=== PATIENT | female | born 1940 | race Caucasian/White ===

== ENCOUNTER 2017-11-14 14:23 | Emergency (ER) | payer MEDICARE, OTHER, SELFPAY ==
--- NOTE | 2017-11-14 14:31 | ED.EXTPRO ---
HPI - Extremity Problem <Lisa Aguillon PA-C - Last Filed: 11/14/17 22:36> General Chief complaint: Extremity Problem,Nontraumatic Stated complaint: SWOLLEN CALF,LEG ACHES Time Seen by Provider: 11/14/17 14:33 Source: patient Mode of arrival: ambulatory Limitations: no limitations History of Present Illness HPI Narrative: This 77-year-old female was sent in by her PCP today due to noticing some leg swelling. She states she has ongoing achiness in that leg that she has seemed related to her chronic left hip and leg pain and arthritis/tendinitis, for which she is doing PT. She states that today is the 1st day that she noticed any swelling but this may have been going on for awhile. She states that she has maybe a little bit of mild calf pain. She notes a little bit of swelling in her legs sometimes and wears compression stockings as needed. She denies any chest pain, wheeze, dyspnea, nausea, abdominal pain or other new symptoms today and has been feeling well. She states that there is no history of blood clots or other family members that she knows of Related Data Previous Rx's Medication Instructions Recorded hydrochlorothiazide 12.5 mg capsule 12.5 mg PO DAILY #90 cap 12/12/17 levothyroxine 100 mcg tablet 100 mcg PO QAM #90 tab 12/12/17 lisinopril 20 mg tablet 20 mg PO DAILY #90 tab 12/12/17 Allergies Allergy/AdvReac Type Severity Reaction Status Date / Time clarithromycin Allergy Unknown Verified 10/21/17 15:06 [CLARITHROMYCIN] Penicillins [PENICILLINS] Allergy Unknown Verified 10/21/17 15:06 rofecoxib [ROFECOXIB] Allergy Unknown Unverified 09/21/17 11:58 Review of Systems <Lisa Aguillon PA-C - Last Filed: 11/14/17 22:36> Review of Systems All systems reviewed & are unremarkable except as noted in HPI and below Exam <Lisa Aguillon PA-C - Last Filed: 11/14/17 22:36> Narrative Exam Narrative: GENERAL APPEARANCE: Patient sitting comfortably, in no distress. NECK/THYROID: Neck supple, no JVD. LUNGS: Clear to auscultation bilaterally. HEART: Regular rate and rhythm without murmur, normal S1, S2, no S3 or S4. EXTREMITIES: No cyanosis, numerous varicosities, increased on the left. Minimal left calf tenderness, none on the right. Right calf measures 39.5 cm, left calf 40. Both angles measure 21.5 cm NEUROLOGIC: Alert and oriented, normal speech, gait and coordination. Initial Vital Signs Initial Vital Signs: Vital Signs Temperature 98.2 F 11/14/17 14:34 Pulse Rate 73 11/14/17 14:34 Respiratory Rate 20 11/14/17 14:34 Blood Pressure 165/92 H 11/14/17 14:34 Pulse Oximetry 96 11/14/17 14:34 <Karri Malone MD - Last Filed: 12/15/17 06:51> Initial Vital Signs Initial Vital Signs: Vital Signs Temperature 98.2 F 11/14/17 14:34 Pulse Rate 73 11/14/17 14:34 Respiratory Rate 20 11/14/17 14:34 Blood Pressure 165/92 H 11/14/17 14:34 Pulse Oximetry 96 11/14/17 14:34 Course <Lisa Aguillon PA-C - Last Filed: 11/14/17 22:36> Orders Ordered: ED Orders 11/14/17 14:46 US periph venous low extrem lt Stat Vital Signs - 8 hr 11/14/17 14:43 Pulse Rate [Left Dorsalis Pedis] 72 <Karri Malone MD - Last Filed: 12/15/17 06:51> Orders Ordered: ED Orders 11/14/17 14:46 US periph venous low extrem lt Stat Vital Signs - 8 hr 11/14/17 14:43 Pulse Rate [Left Dorsalis Pedis] 72 MDM - Extremity (Nontraumatic) <Lisa Aguillon PA-C - Last Filed: 11/14/17 22:36> Imaging Data Venous US: Radiologist's impression: View Report History [address] [address] Ultrasound Report Signed Patient: Barbra Vargas MR#: [id number] : 1940 Acct:[id number] Age/Sex: 77 / F Date of Service: 11/14/17 Loc: ED Accession Number: [id number] Procedure: US periph venous low extrem lt Ordering Provider: Lisa Aguillon P.A-C PROCEDURE: US PERIPH VENOUS LOW EXTREM LT INDICATIONS: L. LE swelling, pain TECHNIQUE: Real-time imaging, as well as color and pulse Doppler interrogation, were performed of the lower extremity deep veins from the inguinal ligament to the popliteal fossa. COMPARISON: None. FINDINGS: The deep veins are normally compressible, and free of intraluminal thrombus. Color and pulse Doppler demonstrate normal phasic intraluminal flow. There is normal augmentation response to distal compression maneuver. IMPRESSION: No evidence of left lower extremity deep vein thrombosis. Dictated by: Alhaji Quintero M.D. on 11/14/2017 at 15:15 Approved by: Alhaji Quintero M.D. on 11/14/2017 at 15:16 Discharge Plan Departure Patient Disposition: Home, Self-Care Clinical Impression: Edema of lower extremity Discharge Date/Time: 11/14/17 16:29 Interventions: ED Discharge Assessment Last Done: 11/14/17 16:28 Instructions: DI for Edema Due to Venous Stasis Activity Restrictions/Additional Instructions: I suspect that your calf swelling is due to having more varicose veins on that side, likely the blood is pulling a little bit more on that side. You do not have any evidence of a blood clot in your veins on your preliminary scan today. I will let you know if the radiologist finds any differences. Please follow-up with your PCP if you have continued pain and swelling. Elevate your legs above your heart as much as possible and do not eat excess salt which could exacerbate the swelling Prescriptions: No Action levothyroxine [Synthroid] 100 mcg tablet 100 mcg PO QAM Qty: 90 RF: 3 lisinopril 20 mg tablet 20 mg PO DAILY Qty: 90 RF: 3 hydrochlorothiazide [Microzide] 12.5 mg capsule 12.5 mg PO DAILY Qty: 90 RF: 3 Referrals: Robe Larson MD [Primary Care Provider] - <Karri Malone MD - Last Filed: 12/15/17 06:51> Cosign ED Attending Cosignature Attestation: The PA/DATA MINING ANALYST functioned independently for the care of this pt, I was available, but not asked to participate in care. I am unable to determine appropriateness of management without personally examining the pt.
[2017-11-14 14:34] VITALS: BP 165/92; PULSE 73; RESP 20; TEMP 36.8; O2SAT 96; BMI 30.1
[2017-11-14 14:43] VITALS: PULSE 72
--- NOTE | 2017-11-14 14:46 | DI.US.S_ITS ---
PROCEDURE: US PERIPH VENOUS LOW EXTREM LT INDICATIONS: L. LE swelling, pain TECHNIQUE: Real-time imaging, as well as color and pulse Doppler interrogation, were performed of the lower extremity deep veins from the inguinal ligament to the popliteal fossa. COMPARISON: None. FINDINGS: The deep veins are normally compressible, and free of intraluminal thrombus. Color and pulse Doppler demonstrate normal phasic intraluminal flow. There is normal augmentation response to distal compression maneuver. IMPRESSION: No evidence of left lower extremity deep vein thrombosis. Dictated by: Alhaji Quintero M.D. on 11/14/2017 at 15:15 Approved by: lAhaji Quintero M.D. on 11/14/2017 at 15:16
== END 2017-11-14 16:29 | disposition home or self-care (01) ==
PROVIDERS: Emergency Provider Internal Medicine; Family Provider Family Medicine; PCP Family Medicine
DX: R60.0 Localized edema (principal)
CPT/HCPCS: 93971; 99282; 99284

== ENCOUNTER → 2018-02-06 07:52 | Outpatient (CLI) | payer MEDICARE, OTHER, SELFPAY ==
[2018-02-06 09:19] LABS: Add Manual Diff / Slide Review NO; Basophils Percent Auto 1.1 % (0-2); Hematocrit 45.5 % (36-46); Hemoglobin 15.4 g/dL (12.0-16.0); Mean Corpuscular HGB Conc 33.9 % (30-36); Mean Corpuscular Hemoglobin 29.7 PG (26-34); Mean Corpuscular Volume 87.7 fL (80-100); Monocytes Percent Auto 6.1 % (3-14); Neutrophils Absolute Auto 4400 /uL (3000-5900); Neutrophils Percent Auto 69.8 % (50-75); Platelet Count 271 X10^3/uL (150-400); Red Blood Cell Count 5.18 X10^6/uL (4.0-5.2); Red Cell Distribution Width 14.3 % (11.6-14.8); White Blood Cell Count 6.3 X10^3/uL (4.5-11.0)
[2018-02-06 09:46] LABS: Alanine Aminotransferase 33 IU/L (9-52); Albumin 4.6 g/dL (3.5-5.0); Albumin Globulin Ratio 1.4 (1.0-2.8); Alkaline Phosphatase 80 U/L (38-126); Aspartate Aminotransferase 40 IU/L (14-36); BUN Creatinine Ratio 31.7 (6-22); Bilirubin Total 0.6 mg/dL (0.2-1.3); Blood Urea Nitrogen 19 mg/dL (7-17); Calcium 9.8 mg/dL (8.4-10.2); Carbon Dioxide 32 mmol/L (22-32); Chloride 102 mmol/L (98-107); Cholesterol 193 mg/dL (140-199); Estimated Glomerular Filt Rate > 60.0 mL/min (>60); Globulin 3.2 g/dL (1.7-4.1); Glucose 99 mg/dL (80-110); HDL Cholesterol 60 mg/dL (40-60); HEMOLYSIS 21 (0-50); LDL Cholesterol Calculated 111 mg/dL (<100); Potassium 4.6 mmol/L (3.4-5.1); Sodium 147 mmol/L (137-145); Total Protein 7.8 g/dL (6.3-8.2); Triglycerides 111 mg/dL (35-150)
[2018-02-06 10:29] LABS: TSH w/ Reflex to FT4 0.09 uIU/mL (0.47-4.68)
[2018-02-06 10:59] LABS: Free T4, Direct Thyroxine 2.02 ng/dL (0.78-2.19)
== END ==
PROVIDERS: Family Provider Family Medicine; PCP Family Medicine; Visit Provider Family Medicine
DX: I10 Essential (primary) hypertension (principal); E03.9 Hypothyroidism, unspecified
CPT/HCPCS: 36415; 80053; 80061; 84439; 84443; 85025

== ENCOUNTER → 2018-05-03 13:44 | Outpatient (CLI) | payer MEDICARE, OTHER, SELFPAY ==
[2018-05-03 15:33] LABS: TSH w/ Reflex to FT4 0.68 uIU/mL (0.47-4.68)
== END ==
PROVIDERS: PCP Family Medicine; Visit Provider Family Medicine
DX: E03.9 Hypothyroidism, unspecified (principal)
CPT/HCPCS: 36415; 84443

== ENCOUNTER → 2019-02-09 08:14 | Outpatient (CLI) | payer MEDICARE, OTHER, SELFPAY ==
--- NOTE | 2019-02-09 | DI.RAD.S_ITS ---
PROCEDURE: XR LUMBAR SPINE 2-3V INDICATIONS: SCOLIOSIS TECHNIQUE: 3 views of the lumbar spine were acquired. COMPARISON: [facility], , L-SPINE 2-3 VIEWS, 10/07/2017, 9:07. FINDINGS: Bones: 5 [id number] vertebrae are present. There is mildly dextroscoliotic bony alignment. No vertebral body compression fractures. No suspicious bony lesions. 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 Soft tissues: Overlying bowel gas pattern is normal. No suspicious soft tissue calcifications. Prior cholecystectomy clips. IMPRESSION: No compression fracture found. Stable appearing dextroscoliosis centered at the L3 level of the LS-spine. Spinal and foraminal stenosis would be suspected at L4-5 and L5-S1. Dictated by: Dimitri Warner M.D. on 02/09/2019 at 10:28 Approved by: Dimitri Warner M.D. on 02/09/2019 at 10:34
[2019-02-09 09:50] LABS: Add Manual Diff / Slide Review NO; Basophils Absolute Auto 0 /uL (0-100); Basophils Percent Auto 0.7 % (0-2); Eosinophils Absolute Auto 100 /uL (0-450); Eosinophils Percent Auto 1.7 % (2-4); Hematocrit 44.9 % (36-46); Lymphocytes Absolute Auto 1700 /uL (1100-4500); Lymphocytes Percent Auto 27.6 % (25-40); Mean Corpuscular HGB Conc 33.4 % (30-36); Mean Corpuscular Hemoglobin 29.7 PG (26-34); Mean Corpuscular Volume 89.1 fL (80-100); Monocytes Absolute Auto 400 /uL (0-900); Monocytes Percent Auto 6.6 % (3-14); Neutrophils Absolute Auto 3900 /uL (1500-7000); Neutrophils Percent Auto 63.4 % (50-75); Platelet Count 298 X10^3/uL (150-400); Red Blood Cell Count 5.04 X10^6/uL (4.0-5.2); Red Cell Distribution Width 14.1 % (11.6-14.8); White Blood Cell Count 6.1 X10^3/uL (4.5-11.0)
[2019-02-09 09:59] LABS: Alanine Aminotransferase 25 IU/L (9-52); Albumin 4.5 g/dL (3.5-5.0); Albumin Globulin Ratio 1.4 (1.0-2.8); Alkaline Phosphatase 91 U/L (38-126); Aspartate Aminotransferase 25 IU/L (14-36); BUN Creatinine Ratio 28.3 (6-22); Bilirubin Total 0.5 mg/dL (0.2-1.3); Blood Urea Nitrogen 17 mg/dL (7-17); Calcium 10.1 mg/dL (8.4-10.2); Carbon Dioxide 31 mmol/L (22-32); Chloride 102 mmol/L (98-107); Cholesterol 200 mg/dL (140-199); Estimated Glomerular Filt Rate > 60.0 mL/min (>60); Globulin 3.2 g/dL (1.7-4.1); Glucose 97 mg/dL (80-110); HDL Cholesterol 63 mg/dL (40-60); HEMOLYSIS < 15 (0-50); LDL Cholesterol Calculated 118 mg/dL (<100); Potassium 4.6 mmol/L (3.4-5.1); Sodium 141 mmol/L (137-145); Total Protein 7.7 g/dL (6.3-8.2); Triglycerides 95 mg/dL (35-150)
== END ==
PROVIDERS: PCP Family Medicine; Visit Provider Family Medicine
DX: M41.9 Scoliosis, unspecified (principal); E03.9 Hypothyroidism, unspecified; I10 Essential (primary) hypertension
CPT/HCPCS: 36415; 72100; 80053; 80061; 84443; 85025

== ENCOUNTER → 2019-02-26 09:50 | Outpatient (CLI) | payer MEDICARE, OTHER, SELFPAY ==
--- NOTE | 2019-02-26 09:53 | DI.US.S_ITS ---
PROCEDURE: US CAROTID DOPPLER BI INDICATIONS: RETINAL HEMORRHAGE TECHNIQUE: Color and pulse Doppler interrogation was performed of both carotid systems, with image documentation and velocity measurements. COMPARISON: None. FINDINGS: Stenosis calculations are based on SRU (Society of Radiologists in Ultrasound) criteria. Right side: Brachial blood pressure: 151/84 mm Hg. Common carotid artery peak systolic velocity: 80 cm/sec. Internal carotid artery peak systolic velocity: 86 cm/sec. Internal carotid artery end diastolic velocity: 27 cm/sec. External carotid artery peak systolic velocity: 73 cm/sec. ICA/CCA peak systolic ratio: 1.1. Dominguez scale imaging description: Minimal scattered plaque. Percent internal carotid artery stenosis: Less than 50%. Vertebral artery: Flow direction is antegrade. Left side: Brachial blood pressure: Not obtained. Common carotid artery peak systolic velocity: 71 cm/sec. Internal carotid artery peak systolic velocity: 56 cm/sec. Internal carotid artery end diastolic velocity: 17 cm/sec. External carotid artery peak systolic velocity: 78 cm/sec. ICA/CCA peak systolic ratio: 0.8. Dominguez scale imaging description: Mild scattered plaque. Percent internal carotid artery stenosis: Less than 50%. Vertebral artery: Flow direction is antegrade. IMPRESSION: Less than 50% bilateral internal carotid artery stenosis. Dictated by: Home BREWSTER Interpreted: Sloane Casanova MD on 02/26/2019 at 11:10 Approved by: Dimitri Warner M.D. on 02/27/2019 at 9:58
== END ==
PROVIDERS: PCP Family Medicine; Visit Provider Family Medicine
DX: H35.60 Retinal hemorrhage, unspecified eye (principal); I65.23 Occlusion and stenosis of bilateral carotid arteries
CPT/HCPCS: 93880

== ENCOUNTER → 2019-03-23 07:57 | Outpatient (CLI) | payer MEDICARE, OTHER, SELFPAY ==
--- NOTE | 2019-03-23 | DI.MG.S_ITS ---
BILATERAL DIGITAL SCREENING MAMMOGRAM 3D/2D WITH CAD POST LUMPECTOMY: 03/23/2019 CLINICAL: Routine screening. Personal history of left breast cancer. Comparison is made to exams dated: 08/31/2016 mammogram, 12/19/2014 mammogram, and 11/30/2013 mammogram - [facility]. There are scattered fibroglandular elements in both breasts. Current study was also evaluated with a Computer Aided Detection (CAD) system. There are a benign intramammary node and lymph node in the right breast. There also are benign post operative findings in the left breast. No significant masses, calcifications, or other findings are seen in either breast. There has been no significant interval change. IMPRESSION: There is no mammographic evidence of malignancy. A 1 year screening mammogram is recommended. This exam was interpreted at Station ID: [id number]. NOTE: For mammograms, a report in lay terms will be sent to the patient. Approximately 15% of breast malignancies will not be visualized mammographically. In the management of a palpable breast mass, a negative mammogram must not discourage biopsy of a clinically suspicious lesion. Electronically Signed By: Phu villatoro/emmanuel:03/23/2019 11:45:23 letter sent: Normal Exam ACR BI-RADS Category 2: Benign Finding(s) 3342F
== END ==
PROVIDERS: PCP Family Medicine; Visit Provider Family Medicine
DX: Z12.31 Encounter for screening mammogram for malignant neoplasm of breast (principal); Z85.3 Personal history of malignant neoplasm of breast
CPT/HCPCS: 77063; 77067

== ENCOUNTER → 2019-03-29 15:01 | Outpatient (CLI) | payer MEDICARE, OTHER, SELFPAY ==
[2019-04-02 15:20] LABS: Fecal Immunochemical Test NOT DETECTED (NOT DETECTED)
== END ==
PROVIDERS: PCP Family Medicine; Visit Provider Family Medicine
DX: Z12.11 Encounter for screening for malignant neoplasm of colon (principal)
CPT/HCPCS: 82274

== ENCOUNTER → 2020-03-07 08:52 | Outpatient (CLI) | payer MEDICARE, OTHER, SELFPAY ==
[2020-03-07 09:38] LABS: Add Manual Diff / Slide Review NO; Basophils Absolute Auto 0 /uL (0-100); Basophils Percent Auto 0.5 % (0-2); Eosinophils Absolute Auto 0 /uL (0-450); Eosinophils Percent Auto 0.8 % (2-4); Hematocrit 43.6 % (36-46); Hemoglobin 14.8 g/dL (12.0-16.0); Lymphocytes Absolute Auto 1300 /uL (1100-4500); Mean Corpuscular Hemoglobin 30.4 PG (26-34); Mean Corpuscular Volume 89.6 fL (80-100); Monocytes Absolute Auto 400 /uL (0-900); Monocytes Percent Auto 6.2 % (3-14); Neutrophils Absolute Auto 4000 /uL (1500-7000); Neutrophils Percent Auto 69.5 % (50-75); Platelet Count 282 X10^3/uL (150-400); Red Blood Cell Count 4.87 X10^6/uL (4.0-5.2); Red Cell Distribution Width 14.1 % (11.6-14.8); White Blood Cell Count 5.7 X10^3/uL (4.5-11.0)
[2020-03-07 09:51] LABS: Alanine Aminotransferase 17 IU/L (<35); Albumin 4.4 g/dL (3.5-5.0); Albumin Globulin Ratio 1.4 (1.0-2.8); Alkaline Phosphatase 92 U/L (38-126); Aspartate Aminotransferase 25 IU/L (14-36); BUN Creatinine Ratio 29.5 (6-22); Bilirubin Total 0.5 mg/dL (0.2-1.3); Blood Urea Nitrogen 18 mg/dL (7-17); Calcium 9.7 mg/dL (8.4-10.2); Carbon Dioxide 33 mmol/L (22-32); Chloride 99 mmol/L (98-107); Cholesterol 178 mg/dL (140-199); Estimated Glomerular Filt Rate > 60.0 mL/min (>60); Globulin 3.1 g/dL (1.7-4.1); Glucose 99 mg/dL (80-110); HDL Cholesterol 59 mg/dL (40-60); HEMOLYSIS < 15 (0-50); LDL Cholesterol Calculated 102 mg/dL (<100); Potassium 4.1 mmol/L (3.4-5.1); Sodium 139 mmol/L (137-145); Total Protein 7.5 g/dL (6.3-8.2); Triglycerides 84 mg/dL (35-150)
[2020-03-07 10:31] LABS: TSH w/ Reflex to FT4 0.41 uIU/mL (0.47-4.68)
[2020-03-07 11:08] LABS: Free T4, Direct Thyroxine 1.49 ng/dL (0.78-2.19)
== END ==
PROVIDERS: PCP Family Medicine; Referring Provider Family Medicine; Visit Provider Family Medicine
DX: E03.9 Hypothyroidism, unspecified (principal); I10 Essential (primary) hypertension
CPT/HCPCS: 36415; 80053; 80061; 84439; 84443; 85025; 86900; 86901

== ENCOUNTER → 2020-03-24 10:54 | Outpatient (CLI) | payer MEDICARE, OTHER, SELFPAY ==
--- NOTE | 2020-03-24 | DI.MG.S_ITS ---
BILATERAL DIGITAL SCREENING MAMMOGRAM 3D/2D WITH CAD: 03/24/2020 CLINICAL: Breast cancer. Routine screening. Comparison is made to exams dated: 03/23/2019 mammogram, 08/31/2016 mammogram, and 07/23/2015 mammogram - [facility]. There are scattered fibroglandular elements in both breasts. Current study was also evaluated with a Computer Aided Detection (CAD) system. The left breast has stable post-operative findings. There are 0.3 cm grouped fine punctate calcifications in the right breast anterior depth medial region seen on the craniocaudal view only. These are increased in number. No other significant masses, calcifications, or other findings are seen in either breast. IMPRESSION: INCOMPLETE: NEEDS ADDITIONAL IMAGING EVALUATION The 0.3 cm grouped fine punctate calcifications in the right breast are indeterminate. Mediolateral and spot magnification views are recommended. This exam was interpreted at Station ID: [id number]. NOTE: For mammograms, a report in lay terms will be sent to the patient. Approximately 15% of breast malignancies will not be visualized mammographically. In the management of a palpable breast mass, a negative mammogram must not discourage biopsy of a clinically suspicious lesion. Electronically Signed By: Phu Merida M.D. aty/:03/24/2020 12:34:23 letter sent: Additional Imaging Needed ACR BI-RADS Category 0: Incomplete 3340F
== END ==
PROVIDERS: PCP Family Medicine; Referring Provider Family Medicine; Visit Provider Family Medicine
DX: Z12.31 Encounter for screening mammogram for malignant neoplasm of breast (principal)
CPT/HCPCS: 77063; 77067

== ENCOUNTER → 2020-05-07 11:00 | Oncology outpatient (ONC) | payer MEDICARE, OTHER, SELFPAY ==
[2020-05-07 11:39] VITALS: BP 130/74; PULSE 54; RESP 18; TEMP 36.4; O2SAT 98
--- NOTE | 2020-05-07 12:27 | P.CONONC_ITS ---
History of Present Illness - Data of Consult Primary Care Provider: Robe Larson MD - Consult Narrative Narrative: Barbra Vargas is a 80 year old female who presents with a history of ductal carcinoma in Situ and a recent abnormal mammogram. 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 This was evaluated and treated in [place] and her pathology report did not mention the size of the lesion. She initially had a lumpectomy and subsequent re-excision with negative margins on final path. Nine lymph nodes were sampled and were negative. Postoperatively she had radiation therapy and no additional treatment. She saw Dr. Sagar lambert in October of 2015 when she had some new left arm pain and had no evidence of active disease at that time. She had a Dimitri surveillance mammograms on March 24, 2020. I personally reviewed this and it shows a 0.3 cm area of increased calcifications in the right breast at 12:00 p.m. seen only on the craniocaudal view. Additional views were obtained April 04 at [facility]. The final interpretation was probably benign with a six-month follow-up mammogram recommended. She now presents for medical oncology consultation. She has some chronic pain in her lower back and leg which she has attributed to scoliosis but is been present for several years and is worse when she does certain activities. It has not really changed overall. It is intermittent. She denies other pain, bleeding, localized weakness, fever, chills, nausea, vomiting, cough or shortness of breath. All other systems are negative. Past medical history 1. Family history is remarkable for melanoma in her father and is otherwise negative 2. Previous surgeries include hysterectomy, breast cancer surgery, arthroscopic knee surgery in 1992 and 2015, appendectomy, cholecystectomy, and carpal tunnel release. 3. High blood pressure 4. History of osteopenia 5. Hypothyroidism, on replacement therapy 6. She denies diabetes, rheumatic fever, tuberculosis, heart attacks, strokes, stomach ulcers, pneumonia or any other kind of cancer 7. She is . She is alone in the office today. She is not a smoker or drinker. She walks her dog and also goes for walks. She does a Sammi draining with her dog. She generally eats a healthy diet. She is was on [employer] for the last 6 months and lost about 40 lb with effort. 8. She is allergic to clarithromycin, penicillin and rofecoxib 9. Current medications are reviewed and include aspirin 81 mg daily, hydrochlorothiazide 12.5 mg daily, Synthroid 0.075 mg daily and lisinopril 20 mg daily. CC: Jarvis Real MD Home Medications and Allergies Home Medications Medication Instructions Recorded Confirmed Type aspirin 81 mg tablet,delayed 81 mg PO DAILY #90 tab 04/11/19 04/09/20 Rx release hydrochlorothiazide 12.5 mg capsule 12.5 mg PO DAILY #90 cap 02/19/20 04/09/20 Rx levothyroxine 75 mcg tablet 75 mcg PO DAILY #90 tab 02/19/20 04/09/20 Rx lisinopril 20 mg tablet 20 mg PO DAILY #90 tab 04/09/20 04/09/20 Rx Allergies Allergy/AdvReac Type Severity Reaction Status Date / Time clarithromycin Allergy Unknown Verified 04/09/20 08:35 [CLARITHROMYCIN] Penicillins [PENICILLINS] Allergy Unknown Verified 04/09/20 08:35 rofecoxib [ROFECOXIB] Allergy Unknown Verified 04/09/20 08:35 Medical History - Medical, Surgical, Family History Medical History: Medical History (Last Reviewed 05/09/18 @ 09:15 by Kendy Urbano LPN) Breast cancer Onset Date: ~1994 Chronic left hip pain HTN (hypertension) Onset Date: ~2000 Osteopenia Onset Date: ~2008 Thyroid nodule Onset Date: ~2003 Surgical History: Surgical History (Last Reviewed 05/09/18 @ 09:15 by Kendy Urbano LPN) Anesthesia History of carpal tunnel repair Onset Date: ~2008 Status post appendectomy Onset Date: ~2003 Status post cholecystectomy Onset Date: ~2003 Status post hysterectomy Onset Date: ~1984 Status post knee surgery Onset Date: ~1992 Family History: Family History (Last Reviewed 05/09/18 @ 09:15 by Kendy Urbano LPN) Father Cancer Mother Hypertension - Social History Smoking Status: Never smoker Review of Systems - Patient Self-Reported Symptoms SR Musculoskeletal issues: Muscle weakness, Cold hands or feet Exam Vital signs: Vital Signs Temp Pulse Resp BP Pulse Ox 05/07/20 11:39 97.6 F 54 L 18 130/74 98 Intake and Output 05/06/20 05/07/20 05/07/20 23:59 07:59 15:59 Other: Weight 59 kg Patient Weight 05/07/20 23:59 Weight 59 kg Narrative: She was awake, alert and oriented x3. There was no palpable peripheral lymphadenopathy in the cervical, supraclavicular or axillary regions. There were no palpable masses in the right breast including a careful inspection of the 1:00 a.m. region where there is a corresponding mammographic abnormality. The left breast showed post treatment changes with some telangiectasia in the skin but no evidence of disease recurrence, suspicious lesions or suspicious skin lesions. Results - Imaging Additional studies: Procedures Closure of skin and subcutaneous tissue of other sites (02/01/13) Assessment and Plan (1) Abnormal mammogram of right breast Status: Acute Ms. Vargas has an abnormal right mammogram. This finding is subtle. I personally reviewed her mammograms. She has a 3 mm area of increasing calcifications. It is felt to be probably benign and a follow-up mammogram in 6 months was recommended. She plans to get this through her primary physician, Dr. Robe Larson. I explained that statistically, this is likely to be benign but follow-up as recommended would certainly be appropriate. She has a remote history of ductal carcinoma in Situ, diagnosed 25 years ago. Her left mammogram where the ductal carcinoma in Situ was located is now negative as is her exam. There is no evidence of recurrence of this process. We discussed measures she can take to reduce the risk of breast cancer recurrence and new primary breast cancer events. The main components of this program would be healthy lifestyle measures. We reviewed the fact that women who exercise for 3 hours a week or more at the equivalent of walking at a brisk pace have a significantly lower risk of developing new breast cancers as well as new cancers in multiple multiple other organs. We discussed strategies to implemented maintain this recommendation. She would also benefit from a Mediterranean diet. We reviewed its components which include fruits and vegetables, whole grains, chicken and fish, limited amounts of red meat, olive oil instead of bladder. It would also be appropriate to avoid chemicals as in processed foods. She is doing well with both exercise and diet strategies at the present time. I encouraged her to keep these up. She plans to 5 get her follow-up mammogram through her primary physician in about 6 months of follow-up with Dr. Larson. Accordingly, no specific appointment has been scheduled to this office although we would be happy to see her at any time if we could be of assistance in her care. I personally spent 34 minutes in today's [id number] visit with greater than 50% of the time spent in counseling regarding the issues outlined above. Impression: 1. Ductal carcinoma in Situ, company toe necrosis present, treated with lumpectomy and re-excision with final margins negative, 9-nodes, and postoperative radiation completed in 1994 with no additional therapy and no evidence of recurrence 2. 3 mm focus of increasing right breast calcifications noted on March 2020 mammogram, confirmed on additional views, felt to be probably benign with a six- month follow-up recommended 3. Other medical problems as listed above Recommendations: 1. She will get her follow-up mammogram in 6 months under the direction of her primary physician, Dr. Robe Larson 2. She was counseled about the importance of regular exercise of at least 3 hours a week at the clone of walking at a brisk pace 3. She was counseled about the importance of a Mediterranean diet and we reviewed its components 4. Although no specific return appointment has been scheduled to this office, would be happy to see her again at any time in the future. Like to thank Dr. Robe Larson for referring this very pleasant interesting patient.
== END ==
PROVIDERS: PCP Family Medicine; Referring Provider Family Medicine; Visit Provider Internal Medicine
DX: Z09 Encounter for follow-up examination after completed treatment for conditions other than malignant neoplasm (principal); Z86.000 Personal history of in-situ neoplasm of breast; R92.1 Mammographic calcification found on diagnostic imaging of breast; I10 Essential (primary) hypertension; M85.80 Other specified disorders of bone density and structure, unspecified site; E03.9 Hypothyroidism, unspecified
CPT/HCPCS: 99203; 99213

== ENCOUNTER → 2020-07-21 08:55 | Outpatient (CLI) | payer MEDICARE, OTHER, SELFPAY ==
[2020-07-21 13:09] LABS: Bacteria Urine Occasional (0-1); Culture Indicated Urine Specimen Cultured; RBC Urine 0-1/HPF (0-5/HPF); Squamous Epithelial Cell Urine 0-1 /HPF (0-5/HPF); WBC Urine 1-5/HPF (0-5/HPF)
== END ==
PROVIDERS: PCP Family Medicine; Visit Provider Family Medicine
DX: R10.2 Pelvic and perineal pain (principal); R10.9 Unspecified abdominal pain
CPT/HCPCS: 81015; 87086

== ENCOUNTER → 2020-07-24 08:23 | Outpatient (CLI) | payer MEDICARE, OTHER, SELFPAY ==
[2020-07-24 09:59] LABS: BUN Creatinine Ratio 39.7 (6-22); Blood Urea Nitrogen 25 mg/dL (7-17); Estimated Glomerular Filt Rate > 60.0 mL/min (>60)
== END ==
PROVIDERS: PCP Family Medicine; Referring Provider Family Medicine; Visit Provider Family Medicine
DX: Z01.812 Encounter for preprocedural laboratory examination (principal)
CPT/HCPCS: 36415; 82565; 84520

== ENCOUNTER → 2020-07-30 07:41 | Outpatient (CLI) | payer MEDICARE, OTHER, SELFPAY ==
--- NOTE | 2020-07-30 07:43 | DI.CT.S_ITS ---
PROCEDURE: CT ABDOMEN PELVIS W CON INDICATIONS: pelvic pain with weight loss TECHNIQUE: After the administration of oral and intravenous contrast, 5 mm thick sections acquired from the diaphragms to the symphysis. 5 mm thick coronal and sagittal reformats were performed. For radiation dose reduction, the following was used: automated exposure control, adjustment of mA and/or kV according to patient size. COMPARISON: None. FINDINGS: Image quality: Excellent. ABDOMEN: Lung bases: Lung bases are clear. Heart size is normal. Solid organs: Liver is normal in size and enhancement. Gallbladder is surgically absent. Biliary system is dilated, within normal limits post cholecystectomy. Pancreas enhances normally. Spleen is normal in size and enhancement. No adrenal nodules. Kidneys are normal in size and enhancement, without hydronephrosis. Peritoneum and bowel: Stomach, small bowel, and colon loops are normal in caliber and wall thickness. No free fluid or air. Incidental note is made of the presence of an anterior rectocele. Nodes and vessels: No retroperitoneal or mesenteric adenopathy. Aorta and inferior vena cava are normal in caliber. Miscellaneous: No ventral hernias. PELVIS: Genitourinary: Bladder wall thickness is normal. Miscellaneous: No inguinal hernias or adenopathy. Uterus is surgically absent. Bones: No suspicious bony lesions. No vertebral body compression fractures. Extensive lumbar degenerative change with resultant canal stenosis and multilevel foraminal stenosis. IMPRESSION: 1. No evidence of acute abdominal process. 2. Remote cholecystectomy and hysterectomy. 3. Anterior rectocele incidentally noted. 4. Extensive lumbar degenerative change with resultant canal stenosis and multilevel foraminal stenosis. Dictated by: Rodrigo Thompson M.D. on 07/30/2020 at 10:49 Approved by: Rodrigo Thompson M.D. on 07/30/2020 at 10:59
[2020-07-31 18:04] LABS: Fecal Immunochemical Test Negative (Negative)
== END ==
PROVIDERS: PCP Family Medicine; Referring Provider Family Medicine; Visit Provider Family Medicine
DX: R10.2 Pelvic and perineal pain (principal); R63.4 Abnormal weight loss; Z12.11 Encounter for screening for malignant neoplasm of colon; M47.816 Spondylosis without myelopathy or radiculopathy, lumbar region; M48.061 Spinal stenosis, lumbar region without neurogenic claudication; Z90.49 Acquired absence of other specified parts of digestive tract; Z90.710 Acquired absence of both cervix and uterus
CPT/HCPCS: 74177; 82274; Q9967

== ENCOUNTER → 2020-09-19 08:43 | Outpatient (CLI) | payer MEDICARE, OTHER, SELFPAY ==
--- NOTE | 2020-09-19 08:46 | DI.MG.S_ITS ---
UNILATERAL RIGHT DIGITAL DIAGNOSTIC MAMMOGRAM 3D/2D POST LUMPECTOMY: 09/19/2020 CLINICAL: Short term follow up of the right breast. Comparison is made to exams dated: 04/04/2020 mammogram - [facility], 03/24/2020 mammogram, 03/23/2019 mammogram, and 08/31/2016 mammogram - [facility]. There are scattered fibroglandular elements in right breast. There are grouped fine calcifications in the right breast central to the nipple middle depth. These are not significantly changed. No other significant masses or calcifications are seen in the breast. IMPRESSION: PROBABLY BENIGN The grouped fine calcifications in the right breast are probably benign. A follow-up mammogram in 6 months is recommended to demonstrate stability. This exam was interpreted at Station ID: [id number]. NOTE: For mammograms, a report in lay terms will be sent to the patient. Approximately 15% of breast malignancies will not be visualized mammographically. In the management of a palpable breast mass, a negative mammogram must not discourage biopsy of a clinically suspicious lesion. Electronically Signed By: Son infante/emmanuel:09/19/2020 09:32:30 letter sent: Followup Recommended ACR BI-RADS Category 3: Probably benign 3343F
== END ==
PROVIDERS: PCP Family Medicine; Referring Provider Family Medicine; Visit Provider Family Medicine
DX: R92.1 Mammographic calcification found on diagnostic imaging of breast (principal)
CPT/HCPCS: 77065; G0279

== ENCOUNTER → 2021-03-25 08:42 | Outpatient (CLI) | payer MEDICARE, OTHER, SELFPAY ==
--- NOTE | 2021-03-25 08:43 | DI.MG.S_ITS ---
BILATERAL DIGITAL DIAGNOSTIC MAMMOGRAM 3D/2D SHORT-TERM FOLLOW-UP POST LUMPECTOMY: 03/25/2021 CLINICAL: Short term follow up of the right breast, due for bilateral imaging. Comparison is made to exams dated: 09/19/2020 mammogram - [facility], 04/04/2020 mammogram - [facility], 03/24/2020 mammogram, and 03/23/2019 mammogram - [facility]. There are scattered fibroglandular elements in both breasts. There are grouped fine calcifications in the right breast central to the nipple middle depth. These are not significantly changed. No other significant masses, calcifications, or other findings are seen in either breast. IMPRESSION: PROBABLY BENIGN The grouped fine calcifications in the right breast are probably benign. A follow-up diagnostic right mammogram in 6 months is recommended to demonstrate stability. This exam was interpreted at Station ID: [id number]. NOTE: For mammograms, a report in lay terms will be sent to the patient. Approximately 15% of breast malignancies will not be visualized mammographically. In the management of a palpable breast mass, a negative mammogram must not discourage biopsy of a clinically suspicious lesion. Electronically Signed By: Robe Plata M.D. jr/:03/25/2021 09:28:45 letter sent: Followup Recommended ACR BI-RADS Category 3: Probably benign 3343F
--- NOTE | 2021-03-25 08:45 | DI.RAD.S_ITS ---
PROCEDURE: XR T AND L SPINE 2 TO 3 VIEWS INDICATIONS: hx of scoliosis TECHNIQUE: 2 views acquired of the thoracolumbar spine. COMPARISON: CR, L-SPINE 2-3 VIEWS, 10/07/2017, 9:07. [facility], CR, XR LUMBAR SPINE 2-3V, 02/09/2019, 8:27. FINDINGS: Bones: No acute fractures or dislocations. Visualized inferior ribs appear intact. No suspicious bony lesions. Approximately 24? of convex right lumbar spine scoliosis. Moderate and severe degenerative disc changes noted throughout the thoracolumbar spine. Mild facet hypertrophy noted throughout the thoracic spine. Moderate facet hypertrophy noted throughout the lumbar spine. Soft tissues: No suspicious soft tissue calcifications. Cholecystectomy clips. Dropped clips in the pelvis. IMPRESSION: 1. Multilevel degenerative disc disease. 2. Multilevel facet arthropathy. 3. No fracture. No acute osseous lesion. If symptoms and/or clinical suspicion for pathology persists, evaluation with MRI should be considered for further assessment. 4. Convex right lumbar spine scoliosis. Dictated by: Katie Chen MD, PhD on 03/25/2021 at 11:54 Approved by: Katie Chen MD, PhD on 03/25/2021 at 11:56
== END ==
PROVIDERS: PCP Family Medicine; Referring Provider Family Medicine; Visit Provider Family Medicine
DX: R92.8 Other abnormal and inconclusive findings on diagnostic imaging of breast (principal); M51.35 Other intervertebral disc degeneration, thoracolumbar region; R92.1 Mammographic calcification found on diagnostic imaging of breast; M47.816 Spondylosis without myelopathy or radiculopathy, lumbar region; M41.86 Other forms of scoliosis, lumbar region
CPT/HCPCS: 72082; 77066; G0279

== ENCOUNTER → 2021-04-03 07:32 | Outpatient (CLI) | payer MEDICARE, OTHER, SELFPAY ==
[2021-04-03 08:39] LABS: Add Manual Diff / Slide Review NO; Basophils Absolute Auto 0 /uL (0-100); Basophils Percent Auto 0.6 % (0-2); Eosinophils Absolute Auto 100 /uL (0-450); Eosinophils Percent Auto 0.9 % (2-4); Hematocrit 43.8 % (36-46); Hemoglobin 14.4 g/dL (12.0-16.0); Lymphocytes Absolute Auto 1400 /uL (1100-4500); Lymphocytes Percent Auto 22.2 % (25-40); Mean Corpuscular HGB Conc 32.8 % (30-36); Mean Corpuscular Hemoglobin 29.4 PG (26-34); Mean Corpuscular Volume 89.6 fL (80-100); Monocytes Absolute Auto 400 /uL (0-900); Monocytes Percent Auto 6.1 % (3-14); Neutrophils Absolute Auto 4400 /uL (1500-7000); Neutrophils Percent Auto 70.2 % (50-75); Platelet Count 276 X10^3/uL (150-400); Red Blood Cell Count 4.88 X10^6/uL (4.0-5.2); Red Cell Distribution Width 14.1 % (11.6-14.8); White Blood Cell Count 6.3 X10^3/uL (4.5-11.0)
[2021-04-03 09:36] LABS: Alanine Aminotransferase 21 IU/L (<35); Albumin 4.4 g/dL (3.5-5.0); Albumin Globulin Ratio 1.4 (1.0-2.8); Alkaline Phosphatase 90 U/L (38-126); Aspartate Aminotransferase 26 IU/L (14-36); BUN Creatinine Ratio 36.2 (6-22); Bilirubin Total 0.4 mg/dL (0.2-1.3); Blood Urea Nitrogen 21 mg/dL (7-17); Calcium 9.9 mg/dL (8.4-10.2); Carbon Dioxide 33 mmol/L (22-32); Chloride 102 mmol/L (98-107); Cholesterol 200 mg/dL (140-199); Estimated Glomerular Filt Rate > 60.0 mL/min (>60); Globulin 3.1 g/dL (1.7-4.1); Glucose 111 mg/dL (80-110); HDL Cholesterol 73 mg/dL (40-60); HEMOLYSIS < 15 (0-50); LDL Cholesterol Calculated 115 mg/dL (<100); Potassium 3.8 mmol/L (3.4-5.1); Sodium 142 mmol/L (137-145); Total Protein 7.5 g/dL (6.3-8.2); Triglycerides 61 mg/dL (35-150)
[2021-04-03 09:47] LABS: Creatinine Urine Random 19.4 mg/dL
[2021-04-03 09:56] LABS: Microalbumin Urine Random < 0.6 mg/dL (0-1.6)
[2021-04-03 10:00] LABS: TSH w/ Reflex to FT4 0.89 uIU/mL (0.47-4.68)
== END ==
PROVIDERS: PCP Family Medicine; Referring Provider Family Medicine; Visit Provider Family Medicine
DX: I10 Essential (primary) hypertension (principal); E03.9 Hypothyroidism, unspecified
CPT/HCPCS: 36415; 80053; 80061; 82043; 82570; 84443; 85025

== ENCOUNTER → 2021-09-10 08:49 | Outpatient (CLI) | payer MEDICARE, OTHER, SELFPAY ==
[2021-09-11 15:06] LABS: Fecal Immunochemical Test Negative (Negative)
== END ==
PROVIDERS: PCP Family Medicine; Referring Provider Physician Assistant; Visit Provider Physician Assistant
DX: Z12.11 Encounter for screening for malignant neoplasm of colon (principal)
CPT/HCPCS: 82274

== ENCOUNTER → 2021-09-28 08:43 | Outpatient (CLI) | payer MEDICARE, OTHER, SELFPAY ==
--- NOTE | 2021-09-28 08:45 | DI.MG.S_ITS ---
UNILATERAL RIGHT DIGITAL DIAGNOSTIC MAMMOGRAM 3D/2D: 09/28/2021 CLINICAL: Short term follow up of the right breast. Comparison is made to exams dated: 03/25/2021 mammogram, 09/19/2020 mammogram - [facility], 04/04/2020 mammogram - [facility], and 03/24/2020 mammogram - [facility]. There are scattered fibroglandular elements in right breast. There are stable grouped fine calcifications in the right breast central to the nipple middle depth. No other significant masses or calcifications are seen in the breast. IMPRESSION: PROBABLY BENIGN The stable grouped fine calcifications in the right breast are probably benign. A follow-up mammogram in 6 months is recommended to demonstrate stability. This exam was interpreted at Station ID: [id number]. NOTE: For mammograms, a report in lay terms will be sent to the patient. Approximately 15% of breast malignancies will not be visualized mammographically. In the management of a palpable breast mass, a negative mammogram must not discourage biopsy of a clinically suspicious lesion. SUMMARY: The patient will be due for her bilateral mammogram at this time. Electronically Signed By: Fartun peters/:09/28/2021 09:37:49 letter sent: Followup Recommended ACR BI-RADS Category 3: Probably benign 3343F
== END ==
PROVIDERS: PCP Family Medicine; Referring Provider Family Medicine; Visit Provider Family Medicine
DX: R92.8 Other abnormal and inconclusive findings on diagnostic imaging of breast (principal); R92.1 Mammographic calcification found on diagnostic imaging of breast
CPT/HCPCS: 77065; G0279

== ENCOUNTER → 2021-11-05 07:50 | Outpatient (CLI) | payer MEDICARE, OTHER, SELFPAY ==
--- NOTE | 2021-11-05 07:52 | DI.RAD.S_ITS ---
PROCEDURE: XR HIP W PEL IF DONE SHIVAM MIN 4V INDICATIONS: L hip pain - suspect OA TECHNIQUE: AP pelvis with lateral view(s) of the right and left hip(s). COMPARISON: None. FINDINGS: Bones: No fractures or dislocations. Pelvic ring appears intact. No suspicious bony lesions. Mild osseous hypertrophy noted in the hips bilaterally. Slight left hip joint space narrowing. Soft tissues: The visualized bowel gas pattern is normal. No suspicious soft tissue calcifications. 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 Dictated by: Katie Chen MD, PhD on 11/05/2021 at 12:23 Approved by: Katie Chen MD, PhD on 11/05/2021 at 12:34
== END ==
PROVIDERS: PCP Family Medicine; Referring Provider Physician Assistant; Visit Provider Physician Assistant
DX: M25.552 Pain in left hip (principal); M16.0 Bilateral primary osteoarthritis of hip
CPT/HCPCS: 73522

== ENCOUNTER → 2022-03-31 09:00 | Outpatient (CLI) | payer MEDICARE, OTHER, SELFPAY ==
--- NOTE | 2022-03-31 09:03 | DI.MG.S_ITS ---
BILATERAL DIGITAL DIAGNOSTIC MAMMOGRAM 3D/2D POST LUMPECTOMY: 03/31/2022 CLINICAL: Short term follow up of the right breast, due for bilateral imaging. Comparison is made to exams dated: 09/28/2021 mammogram, 09/19/2020 mammogram, 03/25/2021 mammogram - [facility], and 04/04/2020 mammogram - [facility]. There are scattered areas of fibroglandular density in both breasts (category b / 25%-50% glandular tissue). There are stable faint grouped fine calcifications in the right breast central to the nipple middle depth. These are less prominent. No other significant masses, calcifications, or other findings are seen in either breast. IMPRESSION: BENIGN Faint calcifications have become less prominent and have shown two year stability. These are therefore benign. There is no mammographic evidence of malignancy. Return to annual mammogram screening schedule is recommended. Findings and recommendations were conveyed to the patient at time of exam. This exam was interpreted at Station ID: [id number]. NOTE: For mammograms, a report in lay terms will be sent to the patient. Approximately 15% of breast malignancies will not be visualized mammographically. In the management of a palpable breast mass, a negative mammogram must not discourage biopsy of a clinically suspicious lesion. Electronically Signed By: Cristina connolly/:03/31/2022 09:49:07 letter sent: Normal Exam ACR BI-RADS Category 2: Benign Finding(s) 3342F
== END ==
PROVIDERS: PCP Family Medicine; Referring Provider Family Medicine; Visit Provider Family Medicine
DX: R92.1 Mammographic calcification found on diagnostic imaging of breast (principal); R92.8 Other abnormal and inconclusive findings on diagnostic imaging of breast
CPT/HCPCS: 77066; G0279

== ENCOUNTER → 2022-04-05 11:17 | Outpatient (CLI) | payer MEDICARE, OTHER, SELFPAY ==
[2022-04-05 11:58] LABS: Add Manual Diff / Slide Review NO; Basophils Absolute Auto 0 /uL (0-100); Basophils Percent Auto 0.7 % (0-2); Eosinophils Absolute Auto 0 /uL (0-450); Eosinophils Percent Auto 0.8 % (2-4); Hematocrit 40.7 % (36-46); Hemoglobin 13.9 g/dL (12.0-16.0); Lymphocytes Absolute Auto 1600 /uL (1100-4500); Lymphocytes Percent Auto 29.3 % (25-40); Mean Corpuscular HGB Conc 34.1 % (30-36); Mean Corpuscular Hemoglobin 29.7 PG (26-34); Monocytes Absolute Auto 300 /uL (0-900); Neutrophils Absolute Auto 3600 /uL (1500-7000); Neutrophils Percent Auto 63.2 % (50-75); Platelet Count 244 X10^3/uL (150-400); Red Blood Cell Count 4.68 X10^6/uL (4.0-5.2); Red Cell Distribution Width 14.3 % (11.6-14.8); White Blood Cell Count 5.6 X10^3/uL (4.5-11.0)
[2022-04-05 12:32] LABS: Alanine Aminotransferase 25 IU/L (<35); Albumin 4.1 g/dL (3.5-5.0); Albumin Globulin Ratio 1.3 (1.0-2.8); Alkaline Phosphatase 76 U/L (38-126); Aspartate Aminotransferase 24 IU/L (14-36); Bilirubin Total 0.6 mg/dL (0.2-1.3); Blood Urea Nitrogen 18 mg/dL (7-17); Calcium 9.2 mg/dL (8.4-10.2); Carbon Dioxide 31 mmol/L (22-32); Chloride 101 mmol/L (98-107); Cholesterol 193 mg/dL (140-199); Estimated Glomerular Filt Rate > 60 mL/min (>60); Globulin 3.1 g/dL (1.7-4.1); Glucose 97 mg/dL (80-110); HDL Cholesterol 61 mg/dL (40-60); HEMOLYSIS < 15 (0-50); LDL Cholesterol Calculated 121 mg/dL (<100); Potassium 3.5 mmol/L (3.4-5.1); Sodium 139 mmol/L (137-145); Total Protein 7.2 g/dL (6.3-8.2); Triglycerides 53 mg/dL (35-150)
[2022-04-05 13:07] LABS: TSH w/ Reflex to FT4 0.78 uIU/mL (0.47-4.68)
== END ==
PROVIDERS: PCP Family Medicine; Referring Provider Family Medicine; Visit Provider Family Medicine
DX: E03.9 Hypothyroidism, unspecified (principal); I10 Essential (primary) hypertension
CPT/HCPCS: 36415; 80053; 80061; 84443; 85025

== ENCOUNTER → 2022-04-28 15:04 | Outpatient (CLI) | payer MEDICARE, OTHER, SELFPAY | PROVIDERS: PCP Family Medicine; Referring Provider Family Medicine; Visit Provider Family Medicine | DX: M81.0 Age-related osteoporosis without current pathological fracture (principal); Z53.8 Procedure and treatment not carried out for other reasons ==

== ENCOUNTER → 2022-05-11 09:54 | Outpatient (CLI) | payer MEDICARE, OTHER, SELFPAY ==
--- NOTE | 2022-05-11 09:55 | DI.RAD.S_ITS ---
PROCEDURE: XR DEXA AXIAL SKELETON INDICATIONS: osteoporosis COMPARISON: None. FINDINGS: This blank DEXA report has been sent in error by the PACS system. The correct and complete report will be forthcoming in 1-2 days. Thank you for your patience and understanding. Dictated by: Tim Townsend M.D. on 05/11/2022 at 10:55 Approved by: Tim Townsend M.D. on 05/11/2022 at 10:56
== END ==
PROVIDERS: PCP Family Medicine; Referring Provider Family Medicine; Visit Provider Family Medicine
DX: Z13.820 Encounter for screening for osteoporosis (principal); Z78.0 Asymptomatic menopausal state; M85.851 Other specified disorders of bone density and structure, right thigh; Z90.710 Acquired absence of both cervix and uterus
CPT/HCPCS: 77080

== ENCOUNTER → 2023-04-01 08:19 | Outpatient (CLI) | payer MEDICARE, OTHER, SELFPAY ==
--- NOTE | 2023-04-01 | DI.MG.S_ITS ---
BILATERAL DIGITAL SCREENING MAMMOGRAM 3D/2D WITH CAD: 04/01/2023 CLINICAL: Routine screening. Personal history of left breast cancer. Comparison is made to exams dated: 03/31/2022 mammogram, 03/25/2021 mammogram, 03/24/2020 mammogram, 03/23/2019 mammogram, and 08/31/2016 mammogram - [facility]. There are scattered areas of fibroglandular density in both breasts (category b / 25%-50% glandular tissue). Current study was also evaluated with a Computer Aided Detection (CAD) system. There are benign calcifications in the left breast. There also are benign post operative findings in the left breast. No significant masses, calcifications, or other findings are seen in either breast. There has been no significant interval change. IMPRESSION: BENIGN There is no mammographic evidence of malignancy. A 1 year screening mammogram is recommended. This exam was interpreted at Station ID: [id number]. NOTE: For mammograms, a report in lay terms will be sent to the patient. Approximately 15% of breast malignancies will not be visualized mammographically. In the management of a palpable breast mass, a negative mammogram must not discourage biopsy of a clinically suspicious lesion. Electronically Signed By: Vasile pinzon/emmanuel:04/01/2023 13:53:58 letter sent: Normal Exam ACR BI-RADS Category 2: Benign Finding(s) 3342F
--- NOTE | 2023-04-01 08:22 | DI.RAD.S_ITS ---
PROCEDURE: XR T AND L SPINE 4 TO 5 VIEWS INDICATIONS: History of scoliosis TECHNIQUE: 2 views acquired of the thoracolumbar spine. COMPARISON: [facility], , XR T AND L SPINE 2 TO 3 VIEWS, 03/25/2021, 8:49. FINDINGS: Bones: No acute fractures or dislocations. Visualized inferior ribs appear intact. No suspicious bony lesions. Moderate multilevel spondylosis of the imaged spine. No acute compression fractures. Accounting for slight differences in technique and patient positioning, stable dextroscoliosis of the lumbar spine measured from the superior endplate of L2 to the superior endplate of L5 of approximately 23?. Moderate degenerative changes of the bilateral hips more pronounced on the left. Soft tissues: No suspicious soft tissue calcifications. Surgical clips noted in the left axilla. Visualized portions of the lungs are clear. Nonobstructive bowel gas pattern. IMPRESSION: 1. Stable appearance of dextroscoliosis of the lumbar spine. 2. Moderate multilevel spondylosis of the imaged spine. 3. Degenerative changes of the bilateral hips more pronounced on the left. Dictated by: Phu Merida M.D. on 04/01/2023 at 10:47 Approved by: Phu Merida M.D. on 04/01/2023 at 10:51
== END ==
PROVIDERS: PCP Family Medicine; Referring Provider Family Medicine; Visit Provider Family Medicine
DX: Z12.31 Encounter for screening mammogram for malignant neoplasm of breast (principal); M41.86 Other forms of scoliosis, lumbar region; M47.816 Spondylosis without myelopathy or radiculopathy, lumbar region; Z85.3 Personal history of malignant neoplasm of breast
CPT/HCPCS: 72083; 77063; 77067

== ENCOUNTER → 2023-04-25 08:41 | Outpatient (CLI) | payer MEDICARE, OTHER, SELFPAY ==
[2023-04-25 09:38] LABS: Add Manual Diff / Slide Review NO; Basophils Absolute Auto 0 /uL (0-100); Basophils Percent Auto 0.7 % (0-2); Eosinophils Absolute Auto 100 /uL (0-450); Hematocrit 44.4 % (36-46); Lymphocytes Absolute Auto 1700 /uL (1100-4500); Lymphocytes Percent Auto 26.3 % (25-40); Mean Corpuscular HGB Conc 33.9 % (30-36); Mean Corpuscular Hemoglobin 30.3 PG (26-34); Mean Corpuscular Volume 89.6 fL (80-100); Monocytes Absolute Auto 400 /uL (0-900); Monocytes Percent Auto 5.7 % (3-14); Neutrophils Absolute Auto 4400 /uL (1500-7000); Neutrophils Percent Auto 66.3 % (50-75); Platelet Count 304 X10^3/uL (150-400); Red Blood Cell Count 4.95 X10^6/uL (4.0-5.2); White Blood Cell Count 6.6 X10^3/uL (4.5-11.0)
[2023-04-25 09:56] LABS: Alanine Aminotransferase 19 IU/L (<35); Albumin 4.5 g/dL (3.5-5.0); Albumin Globulin Ratio 1.4 (1.0-2.8); Alkaline Phosphatase 74 U/L (38-126); Aspartate Aminotransferase 24 IU/L (14-36); BUN Creatinine Ratio 38.3 (6-22); Bilirubin Total 0.7 mg/dL (0.2-1.3); Blood Urea Nitrogen 23 mg/dL (7-17); Calcium 9.9 mg/dL (8.4-10.2); Carbon Dioxide 32 mmol/L (22-32); Chloride 99 mmol/L (98-107); Cholesterol 194 mg/dL (140-199); Estimated Glomerular Filt Rate > 60 mL/min (>60); Globulin 3.2 g/dL (1.7-4.1); Glucose 96 mg/dL (80-110); HDL Cholesterol 62 mg/dL (40-60); HEMOLYSIS < 15 (0-50); LDL Cholesterol Calculated 106 mg/dL (<100); Potassium 3.4 mmol/L (3.4-5.1); Sodium 138 mmol/L (137-145); Total Protein 7.7 g/dL (6.3-8.2); Triglycerides 129 mg/dL (35-150)
[2023-04-25 10:27] LABS: TSH w/ Reflex to FT4 0.46 uIU/mL (0.47-4.68)
[2023-04-25 10:52] LABS: Free T4, Direct Thyroxine 1.49 ng/dL (0.78-2.19)
== END ==
PROVIDERS: PCP Family Medicine; Referring Provider Family Medicine; Visit Provider Family Medicine
DX: I10 Essential (primary) hypertension (principal); E03.9 Hypothyroidism, unspecified
CPT/HCPCS: 36415; 80053; 80061; 84439; 84443; 85025

== ENCOUNTER → 2023-05-03 09:57 | Outpatient (CLI) | payer MEDICARE, OTHER, SELFPAY ==
[2023-05-04 16:00] LABS: Fecal Immunochemical Test Negative (Negative)
== END ==
PROVIDERS: PCP Family Medicine; Referring Provider Family Medicine; Visit Provider Family Medicine
DX: Z12.11 Encounter for screening for malignant neoplasm of colon (principal)
CPT/HCPCS: 82274

== ENCOUNTER → 2023-07-05 09:18 | Outpatient (CLI) | payer MEDICARE, OTHER, SELFPAY ==
--- NOTE | 2023-07-05 09:21 | DI.RAD.S_ITS ---
PROCEDURE: XR RIBS LT MIN 3V W CXR1V INDICATIONS: rib pain on left aillary area hx of brest cancer TECHNIQUE: 2 views of the ribs were acquired, along with a single view chest. COMPARISON: None. FINDINGS: Surgical changes and devices: Surgical clips are noted in left axilla. Bones and chest wall: No fractures or dislocations. No suspicious bony lesions. Overlying soft tissues appear unremarkable. Lungs and pleura: No pleural effusions or pneumothorax. Lungs appear clear. Mediastinum: Mediastinal contours appear normal. Heart size is normal. IMPRESSION: No displaced rib fracture or pneumothorax. No gross suspicious bony lesions. Dictated by: Norman Moy M.D. on 07/05/2023 at 10:17 Approved by: Norman Moy M.D. on 07/05/2023 at 10:22
== END ==
LOC: RAD 09:20
PROVIDERS: PCP Family Medicine; Referring Provider Family Medicine; Visit Provider Family Medicine
DX: R07.81 Pleurodynia (principal)
CPT/HCPCS: 71101

== ENCOUNTER → 2023-07-12 09:00 | Outpatient (CLI) | payer MEDICARE, OTHER, SELFPAY ==
[2023-07-12 09:48] LABS: Add Manual Diff / Slide Review NO; Basophils Absolute Auto 0 /uL (0-100); Basophils Percent Auto 0.4 % (0-2); Eosinophils Absolute Auto 100 /uL (0-450); Eosinophils Percent Auto 0.6 % (2-4); Hematocrit 41.7 % (36-46); Hemoglobin 14.1 g/dL (12.0-16.0); Lymphocytes Absolute Auto 1400 /uL (1100-4500); Lymphocytes Percent Auto 14.2 % (25-40); Mean Corpuscular HGB Conc 33.8 % (30-36); Mean Corpuscular Hemoglobin 29.7 PG (26-34); Mean Corpuscular Volume 87.7 fL (80-100); Monocytes Absolute Auto 600 /uL (0-900); Monocytes Percent Auto 6.3 % (3-14); Neutrophils Absolute Auto 7700 /uL (1500-7000); Neutrophils Percent Auto 78.5 % (50-75); Platelet Count 286 X10^3/uL (150-400); Red Blood Cell Count 4.75 X10^6/uL (4.0-5.2); White Blood Cell Count 9.8 X10^3/uL (4.5-11.0)
[2023-07-12 09:55] LABS: Hemoglobin A1C% w Est Avg Glu 5.9 % (4.0-6.0)
[2023-07-12 10:11] LABS: Albumin 4.1 g/dL (3.5-5.0); BUN Creatinine Ratio 46.2 (6-22); Blood Urea Nitrogen 30 mg/dL (7-17); Calcium 9.6 mg/dL (8.4-10.2); Carbon Dioxide 32 mmol/L (22-32); Chloride 99 mmol/L (98-107); Estimated Glomerular Filt Rate > 60 mL/min (>60); Glucose 99 mg/dL (80-110); HEMOLYSIS < 15 (0-50); Potassium 3.9 mmol/L (3.4-5.1); Sodium 136 mmol/L (137-145)
[2023-07-12 10:19] LABS: Prealbumin 21.4 mg/dL (17.6-36.0)
[2023-07-12 10:25] LABS: Vitamin D 25 Hydroxy (D3) 56.8 ng/mL (30.0-100.0)
== END ==
LOC: LAB 09:01
PROVIDERS: PCP Family Medicine; Referring Provider Orthopaedic Surgery Adult Reconstructive Orthopaedic Surgery; Visit Provider Orthopaedic Surgery Adult Reconstructive Orthopaedic Surgery
DX: Z01.818 Encounter for other preprocedural examination (principal); R73.9 Hyperglycemia, unspecified; E55.9 Vitamin D deficiency, unspecified; Z01.812 Encounter for preprocedural laboratory examination; R77.0 Abnormality of albumin
CPT/HCPCS: 36415; 80048; 82040; 82306; 83036; 84134; 85025; 93005

== ENCOUNTER 2023-09-09 05:56 | Day surgery (SDC) | payer MEDICARE, OTHER, SELFPAY ==
[2023-08-30 12:03] VITALS: BMI 29.7
[2023-09-09] VITALS (15 sets, daily range): BP systolic 93–143; BP diastolic 56–82; PULSE 72–92; RESP 15–20; TEMP 36.1–36.7; O2SAT 93–99; BMI 29.7; BMI 30.2
--- NOTE | 2023-09-09 | DI.RAD.S_ITS ---
PROCEDURE: XR HIP W PEL IF DONE LT 2V INDICATIONS: LT ANTERIOR HIP TECHNIQUE: AP pelvis and lateral view of the hip acquired. COMPARISON: [facility], CR, XR PELVIS WITH LATERAL HIP LEFT, 05/16/2023, 8:54. [facility], CR, XR HIP W PEL IF DONE SHIVAM 3TO4V, 11/05/2021, 7:47. FINDINGS: Bones: Patient is status post left hip arthroplasty, with hardware components in expected positions. The hip joint appears congruent. The visualized bony structures appear intact. Soft tissues: Overlying postoperative changes are noted. No suspicious soft tissue densities. Clips in the right pelvis. IMPRESSION: Expected post-operative appearance of a hip arthroplasty. Dictated by: Vasile Grimes M.D. on 09/09/2023 at 12:50 Approved by: Vasile Grimes M.D. on 09/09/2023 at 12:51
--- NOTE | 2023-09-09 06:00 | DI.RAD.S_ITS ---
PROCEDURE: XR HIP W PEL IF DONE LT 2V INDICATIONS: MANDO TECHNIQUE: 6 intraoperative fluoroscopic view(s) of the hip acquired. COMPARISON: [facility], CR, [id number] W PEL IF PERFORMED, 10/07/2017, 9:08. FINDINGS: Intraoperative fluoroscopic images of left hip shows left total hip arthroplasty in progress. IMPRESSION: Fluoro guidance was provided intraoperatively for left total hip arthroplasty. Dictated by: Norman Moy M.D. on 09/10/2023 at 10:37 Approved by: Norman Moy M.D. on 09/10/2023 at 10:37
[2023-09-09] MEDS: ACETAMINOPHEN 325 MG TABLET 975 MG PO (07:07)
[2023-09-09] MEDS: LACTATED RINGERS 1,000 ML 42 ML IV ×3 (07:08→10:03)
[2023-09-09] MEDS: MELOXICAM 7.5 MG TABLET PO (07:08)
--- NOTE | 2023-09-09 07:43 | PM.PREOP ---
Pre-operative Note Interval Note History & Physical reviewed/Exam performed by Physician: Yes Changes to H&P: No
[2023-09-09] MEDS: CEFAZOLIN 2 GM/100 ML PREMIX 100 ML IV ×3 (07:56→23:27)
[2023-09-09] MEDS: TRANEXAMIC ACID 1,000 MG VIAL 1000 MG INJ ×2 (08:15→09:44)
--- NOTE | 2023-09-09 08:37 | SUR.OPER ---
Supine on padded [place] table with bilateral legs secured in padded positioning boots and suspended in positioning spars, operative leg in traction per surgeon. Head on one pillow. Arms secured on padded armboards <90 degrees abduction. Padded perineal post in place per surgeon.
[2023-09-09] MEDS: ROPIVACAINE/EPI/CLONIDINE/KET 50 ML SYRINGE INJ (08:41)
--- NOTE | 2023-09-09 10:33 | P.OP_ITS ---
Operative Date/Time/Diagnoses Date of procedure: 09/09/23 Pre-op diagnosis: Left hip arthritis Post-op diagnosis: same Procedure & Clinicians Procedure: Left total hip arthroplasty (26396) Same procedure as scheduled: Yes Surgeon: Yasmany Jones Rubber Compounder Formulator: Ariella Ogden Anesthesia Type: Spinal, Sedation and Local Operative Notes Estimated Blood Loss (mL): 600 Procedure in detail: Implants: Depuy Total Hip Arthroplasty: * Depuy Bimentum size 53 cup? * Depuy Actis femoral stem size 8 high offset? * 28 mm +1.5 ceramic femoral head? 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 Because of this I counseled her that a left total hip arthroplasty could not reliably relieve all of her symptoms. 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 She had then had worsening of her hip from [id number] which had been associated with the onset of groin pain and increased disability. In order to determined the possible utility of the left total hip arthroplasty I had her undergo a fluoroscopic guided intra- articular left hip injection with local anesthetic only. She reported a satisfactory level of pain relief following that anesthetic injection and I used this as a parameter for the appropriateness of a left total hip arthroplasty. With the full understanding that today surgery would not result in 100% improvement of her symptoms and that her back issues would obviously persist following a total hip arthroplasty she wished to proceed based on the pain relief that she achieved following her intra-articular hip injection. Sit stand lumbar spine radiographs indicated spinal pelvic stiffness associated with her lumbar degeneration and I therefore used a mono block dual mobility cup. A conjoined tendon release was not necessary to achieve access to her femoral canal. I found that I was able to broach up slightly higher than I had templated. I was unable to dislocate her hip with maximum external rotation after implantation of her dual mobility components and a size 8 high offset stem. Procedure in Detail: This patient was seen preoperatively and evaluated for hip pain which was refractory to numerous nonoperative treatment modalities. Their hip pain correlated with radiographic changes demonstrating significant degeneration in the hip joint. The risks and benefits of continued nonoperative management versus operative management were discussed at length and all of the patient?s questions were answered. Additional educational materials providing further details beyond our discussion in clinic were provided via a publicly available patient education video which included the incidence of medical complications associated with total hip arthroplasty, reasons for revision following total hip arthroplasty, and patient satisfaction rates following total hip arthroplasty. That video can be accessed at [email or web address] . With this understanding of the risks inherent to the procedure, the patient elected to move forward with operative management. Following preoperative optimization, the patient was scheduled for surgery. The patient was met in the preoperative holding area the day of the procedure and all questions were answered. The patient?s nares were swabbed with betadine in order to decolonize them from MRSA. Informed consent was signed and the operative limb was marked with indelible ink.? The patient was brought back to the operating room where anesthesia was induced. The patient was transferred to the Briggs table and all bony prominences were padded. The operative site was prepped and draped in the usual sterile fashion. Prior to incision, tranexamic acid and cefazolin were administered. Operative templating images were displayed demonstrating the anticipated implant sizes and correct operative extremity. A timeout procedure was performed verifying the patient?s identity, medical comorbidities, allergies, relevant medications, anesthesia type and the surgical plan. All present were in agreement. The assistance of a physician assistant professor of spanish was required for positioning, room setup, soft tissue retraction and wound closure. Without this assistance, the procedure would have been significantly more challenging and time consuming.?? A direct anterior approach to the hip was utilized. This was performed with a longitudinal incision through a Heuter interval. The incision was planned 2 cm distal and 2 cm lateral to the ASIS extending towards the lateral patella, in line with the muscle body of the TFL. Following incision, the subcutaneous tissue was dissected while taking care to avoid injury to the lateral femoral cutaneous nerve. The fascia overlying the TFL was identified by dissecting off the overlying fat and identifying perforating vessels to the TFL. The TFL fascia was incised and dissected away from the medial border of the TFL. A cobra retractor was placed over the superior femoral neck between the abductors and the hip capsule and used to reflect the TFL laterally. A [place] self-retainer was then placed in the distal aspect of the wound between the TFL and the rectus femoris. This was tensioned to open up the direct anterior interval and the lateral circumflex vessels were identified and coagulated using electrocautery. The floor of the TFL fascia was incised, exposing the pericapsular fat overlying the hip capsule. A second cobra retractor was placed on the inferior femoral neck. A double-bent soft tissue retractor was placed on the anterior wall of the acetabulum and used to tension the reflected head of rectus femoris, which was then released in order to limit soft tissue tension. A capsulotomy was made in the midline of the anterior hip capsule in line with the femoral neck ending at the vastus tubercle. The double-bent retractor was removed in order to limit the amount of time that a soft tissue retractor remained on the anterior wall and protect the femoral nerve. Tag stitches were placed in the superior and inferior leaflets of the hip capsule. An Peter soft tissue retractor was introduced over the tag stitches and tensioned in the interval between the rectus femoris and the TFL in order to retract and protect those muscles. The cobra retractors were replaced intracapsularly, with one over the superior neck in the pocket created by the base of the greater trochanter and the other on the femoral head. The capsulotomy was extended laterally to the base of the greater trochanter and medially to the lesser trochanter. This required externally rotating the hip. Once the lesser trochanter had been identified, a neck cut was planned according to measurements from preoperative templating. A ruler was cut at the length measured between the superior aspect of the lesser trochanter and the collar of the prosthesis. This line was extended towards the inferior aspect of the lateral cobra retractor to plan a cut which would leave minimal residual femoral neck laterally. The neck was cut at 60 degrees of external rotation along that line. A second cut was performed to remove a large napkin ring and facilitate head extraction. The napkin ring cut and femoral head were removed.?? A broad anterior wall retractor was placed between the labrum and the anterior capsule so that the anterior capsule would prevent capturing and pinching the femoral nerve anteriorly. An additional retractor was placed on the posterior wall. External rotation and traction were applied through the Briggs table so that the cut surface of the femoral neck would not restrict access to the acetabulum. The labrum was excised sharply and the pulvinar was excised with electrocautery to limit bleeding from branches of the obturator artery. Acetabular reamers were selected based on preoperative templating and measurements of the excised femoral head. These were introduced into the acetabulum. Fluoroscopy was utilized to replicate a standing AP pelvis radiograph by centering over the pelvis, rotating until there was appropriate symmetry between the obturator foramen, and introducing caudal tilt to match the position of the pubic symphysis relative to the sacrococcygeal junction according to the patient?s anatomy. Fluoroscopy was utilized to ensure appropriate reaming depth. Once satisfied with the reaming depth corresponding to the preoperative template and the pinch fit between the columns, an appropriate sized acetabular cup was selected which would provide 1 mm of press-fit. This cup was introduced and manipulated until appropriate abduction and anteversion angles were obtained with careful attention to appropriate abduction and anteversion angles as evaluated by the position of the cup relative to the anterior and posterior sage of the acetabulum and the AP fluoroscopy which recreated the patient?s standing radiograph. The cup was impacted into place. Attention was then turned to the femur. All retractors were removed, traction was released, a retractor was placed in the interval between the hip capsule and the gluteus minimus, and the hip was externally rotated to 90 degrees. Traction was applied through the Briggs table to tension the lateral capsule and this was released using electrocautery. Traction was released and a Briggs hook was placed posteriorly around the proximal femur at the level of the vastus ridge. The table height was lowered in order to restrict the tension on the anterior structures during hip hyperextension to limit the risk of femoral nerve palsy. With traction off and the hip at 90 degrees of external rotation, the hip was hyperextended and adducted while manually elevating the femur away from the acetabulum with the Briggs hook to ensure it would not be caught behind the greater trochanter. An asymmetric retractor was placed over the calcar and a broad double-pronged retractor was placed over the greater trochanter. The tag stitch capturing the lateral leaflet of the capsule was moved to the medial side, leaving the conjoined and piriformis tendons isolated in the face of the greater trochanter. The hip was externally rotated and elevated. A release of the conjoined tendon was not necessary in order to obtain adequate exposure for broaching. The canal was opened with an opening broach and a rasp was used to remove cancellous bone. A rongeur was used to remove the residual lateral bone at the base of the greater trochanter to avoid placing the stem in varus. The femur was then broached to the appropriate sized stem yielding good rotational fit and fill of the canal as well as appropriate version of the stem trial. Neck and head trials were placed, all retractors were removed and the hip was returned to neutral abduction and extension. I then reduced the hip. An AP pelvis fluoroscopic image matching the preoperative standing radiograph was obtained with both lesser trochanters visible and both hips in 40 degrees of external rotation. This demonstrated appropriate leg length and offset. An AP hip fluoroscopic image was obtained with the hip in neutral rotation which demonstrated appropriate canal fill. A lateral radiograph was also obtained lik ewise demonstrating appropriate canal fill. Hip stability was evaluated with 90 degrees of external rotation and a 45 degree drop test which demonstrated good stability. The hip was dislocated and I returned to the broaching position. I had initially placed a size 7 broach for the trialing process. I noted that I was able to sink the broach slightly after reaming engaging the broach handle. I therefore removed additional bone laterally and upsized to a size 8 broach. I was able to sink this to the site of the prior calcar planing. The definitive stem was placed and the trunnion was cleaned and dried. I assembled the dual mobility head on the back table, placed this onto the trunnion and impacted it into place on the Valenzuela taper.?? All retractors were removed and the hip was reduced. A dilute mixture of betadine and peroxide was used to bathe the soft tissues during final fluoroscopic assessment. Appropriate component positioning was confirmed on an AP pelvis radiograph with the operative and nonoperative legs in 40 degrees of external rotation, evaluating leg length and offset. Appropriate stem fill was evaluated on an AP hip radiograph with the operative leg in neutral rotation. No fractures were identified on these radiographs. Stability was satisfactory with a 90 degree external rotation test as well as a 45 degree drop test. The hip was copiously irrigated with pulse lavage. The capsule was closed with absorbable interrupted suture. The TFL fascia was closed with barbed suture while carefully protecting the lateral femoral cutaneous nerve from entrapment. A mixture of Ropivacaine, Epinephrine, Clonidine and Toradol was infiltrated throughout the soft tissues. The skin was closed with 2-0 and 3-0 sutures. Surgical glue was applied and a soft dressing was placed.??The sponge, instrument and needle counts were reported as being correct at the end of the case.??No obvious complications occurred. The patient was transferred from the Briggs table back to a stretcher. The patient emerged from anesthesia without difficulty and was taken to the PACU in a stable condition.? Plan for aftercare: * Anterior hip precautions * Weightbearing as tolerated * Patient very strongly desires to go home today. We will have her mobilize with physical therapy postoperatively in anticipation of discharge later today * Aspirin 81 twice per day for DVT prophylaxis * Multimodal pain regimen with no IV opioids ordered * Follow up at [facility] in 2 weeks * Detailed postoperative instructions available at [email or web address]
--- NOTE | 2023-09-09 11:19 | PC.NURSE ---
Day shift: In room from PACU at approx 1111. A&Ox4. Denies any pain. CMS intact. PPP. States that she is ready to discharge. Oriented to room and call light. Usung I.S. as directed and tolerating well.. RA 97%. VS ok. BP 106/60 asymptomatic. Bed alarm is on. Agrees to not get OOB w/o help from staff. Call light in reach and bed alarm is on.
[2023-09-09] MEDS: LACTATED RINGERS 1,000 ML 100 ML IV (11:34)
[2023-09-09] MEDS: ACETAMINOPHEN 325 MG TABLET 650 MG PO ×3 (11:38→23:28)
[2023-09-09] MEDS: IBUPROFEN 600 MG TABLET PO ×3 (11:38→23:28)
--- NOTE | 2023-09-09 13:40 | PT.IIE ---
Current Diagnoses Unilateral primary osteoarthritis, left hip (09/09/23) Surgery Performed Operation Date: 09/09/23 07:45 Actual Procedures p Total Hip Arthroplasty/Anterior Approach(Left) - Yasmany Jones MD Surgical History (Last Updated 08/30/23 @ 12:10 by Bridgett Parada, RN) Anesthesia History of carpal tunnel repair (~2008) History of lumpectomy of left breast (~1994) Hx of bilateral cataract extraction Status post appendectomy (~2003) Status post cholecystectomy (~2003) Status post hysterectomy (~1984) Status post knee surgery (~1992) Medical History (Last Updated 08/30/23 @ 12:14 by Bridgett Parada RN) Breast cancer (~1994) Chronic left hip pain Hearing impaired History of malignant melanoma of skin HTN (hypertension) (~2000) Osteopenia (~2008) Thyroid nodule (~2003) Physical Therapy Inpatient Evaluation/Re-Eval M1 PT/OT-IP Prior Functional Status Start: 09/09/23 15:20 Freq: NEEDED Status: Active Protocol: Document 09/09/23 13:40 AB (Rec: 09/09/23 15:41 AB [id number]) Medical Review Prior Functional Status Medical History Reviewed Yes Communication able to make needs known Mobility and Gait pt stated that she was modified independent with all mobilities and ambulation without AD but started using a SPC for a few months already: occasionally indoors but all the time for outdoor mobility due to hip pain Social History Household Members spouse Living Arrangements House Number of Floors (Floors) One Floor Number of Stairs To Enter/Railing? no steps to enter the house Home Environment Standard Height Toilet,Walk in Shower Home Equipment Front Wheel Walker,Straight Cane,Raised Toilet Seat Without Armrests,Shower Seat with Backrest,Hand Held Shower ,Grab Bars Near Toilet,Grab Bars In Shower Additional Social History Comment pt stated that her spouse will not be able to assist her: her friend Zahida will be staying with her for ~ 1 week to assist her and her son lives ~ 5 min away and can assist if needed pt has a transport w/c and an adjustable bed M2 PT-IP Current Condition Start: 09/09/23 15:20 Freq: NEEDED Status: Active Protocol: Document 09/09/23 13:40 AB (Rec: 09/09/23 15:41 AB [id number]) Physical Therapy Current Condition Current Condition Evaluation Date 09/09/23 Treatment Diagnosis s/p L MANDO anterior; difficulty in walking Onset Date 09/09/23 M3 PT-IP Subjective Start: 09/09/23 15:20 Freq: NEEDED Status: Active Protocol: Document 09/09/23 13:40 AB (Rec: 09/09/23 15:41 AB [id number]) Subjective Physical Therapy Visit Type Type Initial Evaluation Visit Start Time 13:40 Visit Stop Time 15:15 Number of HOG CUTTER Visits 0 Physical Therapy Visit Comments Patient Comments agreeable to do PT Therapy Pain Assessment Pain When Pain Assessed At Rest Pain Present Pain Present Pain Reported Location Left Hip Intensity 2 Scale Used Numeric (0 - 10) Pain Management Techniques Apply Cold,Distraction, Modification of Treatment,Re- positioning,Timing of Activity with Medications M4 PT-IP Mobility and Gait Start: 09/09/23 15:20 Freq: NEEDED Status: Active Protocol: Document 09/09/23 13:40 AB (Rec: 09/09/23 15:41 [id number]) PT-Bed Mobility Assessment Supine to Sit Supine to Sit Moderate Assistance,1 Person Assistance Sit to Supine Sit to Supine Moderate Assistance,1 Person Assistance PT-Transfer Assessment Sit to and From Stand Sit to and from Stand Moderate Assistance,Maximum Assistance,1 Person Assistance ,Use of Upper Extremities Equipment Transfer Assistive Device Gait Belt,Front Wheeled Walker Orthotic/Prosthetic Devices or Brace: No Transfers Transfer Destination Bed,Bedside Commode Transfer Technique Stand Step Pivot Transfer Ability Level of Assist Moderate Assistance,Maximum Assistance,1 Person Assistance ,Use of Upper Extremities Comments Mobility Comments pt supine in bed and agreeable to do PT. pt's friend zahida in room with pt. obtained PLOF and home set up from pt. post-op folder provided and reviewed contents. educated pt and friend regarding pt's anterior hip precautions LLE. pt able to recall after education provided. BP in supine: 123/70. pt completed supine to sit mod A and max cues. required assist to move LLE to EOB. BP sittin/65. pt able to sit on EOB for ~ 2 more minutes without c/o dizziness. BP checked: 124/68. pt stated that she needs to use the toilet. bedside commode set up but pt stated that she wants to use the toilet. educated pt on safety and informed that pt can walk to the toilet if stable but commode is ready if needed. pt understood. pt completed sit to stand max A and cues and has to sit back down. stated that she if voiding on the floor. instructed pt to use bedside commode. completed sit to stand again max A and step transfer to commode using FWW max A and cues with (+) L knee buckling x 4. cued pt for quads activation but pt unable to follow and is distracted with hurrying to use the toilet. assisted pt with gown/socks change and brief management. educated pt on stability of LLE and safety . pt understood. completed sit to stand from bedside commode max A and cues and was able to maintain standing mod A using FWW for support while NAC assisted pt with hygiene care and brief change. pt completed step transfer to EOB mod A and cues. BP checked: 116/60. pt completed sit to stand from EOB mod A and cues and ambulated in room using FWW mod A and max cues for L quads activation. continue to have L knee buckling x 3. pt sat back on chair. pt insistent on going home. caregiver training conducted. educated pt's frined on how to use safety belt and how to assist pt. pt's friend was able to put safety belt on . assisted pt with with to stand and ambulated in room using FWW ~ 20ft mod A and max cues. (+) L knee buckling x 2. pt sat back on EOB. educated on car transfers. completed sit to supine max A for LLE elevation to bed. positioned pt on the bed. call light and table placed within reach. informed pt and pt's friend regarding current mobility and concerns. pt continues to want to go home. pt's friend stated that they have a transport chair that pt can use to get into the house. BP at end of PT session: 105/69. informed nurse regarding pt's mobility and requested OT eval order. Gait Assessment Gait Gait Assistance Required: Moderate Assistance Distance (Feet) 20 Able to Maintain Weight Bearing Status Yes During Gait Assistive Devices Assistive Device Gait Belt,Front Wheeled Walker Orthotic/Prosthetic Devices or Brace: No Gait Deviations General Gait Pattern Decreased Feet Clearance Factors Limiting Gait Function Factors Limiting Gait Function Decreased Activity Tolerance, Decreased Strength,Pain,Poor Balance PT-Balance Assessment Sitting Balance and Reactions Static Sitting Balance Ability Good Dynamic Sitting Balance Ability Good Standing Balance and Reactions Static Standing Balance Ability Poor Dynamic Standing Balance Ability Poor Device Used FWW M5 PT-IP Objective Assessments Start: 09/09/23 15:20 Freq: NEEDED Status: Active Protocol: Document 09/09/23 13:40 AB (Rec: 09/09/23 15:41 AB [id number]) Orientation Orientation/Cognition Level of Alertness Alert Orientation Name,Situation Language Function Ability No Deficits Noted Safety Awareness Decreased Safety Awareness Memory Description No Deficits Noted Gross Range of Motion Lower Extremity ROM Assessment Within Functional Limits Strength Lower Extremity Strength Assessment Left Impaired Hip 3-/5 Knee 3+/5 Coordination Assessment Gross Coordination Gross Coordination WNL Sensation Assessment Sensation Gross Sensation WNL Muscle Tone Muscle Tone WNL Yes M6 PT-IP Treatment Start: 09/09/23 15:20 Freq: NEEDED Status: Active Protocol: Document 09/09/23 13:40 AB (Rec: 09/09/23 15:41 AB [id number]) Physical Therapy Treatment Exercises Exercises Heel Slides Education Education Provided Precautions,Weight Bearing Status,Post-Op Packet,Safety M7 PT-IP Assessment and Plan Start: 09/09/23 15:20 Freq: NEEDED Status: Active Protocol: Document 09/09/23 13:40 AB (Rec: 09/09/23 15:41 AB [id number]) PT Summary Assessment and Plan Potential Rehabilitation Potential Fair Status of Condition at Evaluation Evolving Summary Impairments Pain,ROM,Strength,Balance, Coordination,Sensation,Tone, Cognition,Bed Mobility, Transfers,Gait,Activity Tolerance Assessment Summary pt is an 83 y/o F s/p L MANDO anterior approach. pt has LLE anterior hip precautions and is WBAT. pt requiring mod to max A with mobility and has (+ ) L knee buckling during transfers and ambulation. pt is aware of mobility and safety concerns but is insistent on going home. caregiver training conducted with pt's friend and friend stated that they can use their transport w/c to assist pt to get into the house. Nurse is aware of pt's mobility. will continue to assess progress. Goals Bed Mobility Goal Independent Transfer Goal Independent,Front Wheeled Walker Gait Goal Independent,Front Wheel Walker Gait Distance 200 Days to Meet Goals 5 Frequency of Treatment Frequency Of Treatment Twice a Day Treatment Plan Physical Therapy Treatment Plan Bed Mobility Training,Transfer Training,Gait Training, Therapeutic Exercise,Balance Retraining,Post Op Education, Discharge Planning,Hot or Cold Pack,Neuromuscular Re-ed, Coordination Retraining,Manual Therapy Precautions Anterior Hip Precautions No Hip Extension,No Hip External Rotation Weight Bearing Status Weight Bearing Status Weight Bear as Tolerated Allowed Weight Bearing Amount (enter % LLE WBAT or #) (%) Recommendations To Nursing Amount of Assist Needed 1 Person Assist Discharge Recommendations PT Discharge Recommendations Home with 03/01 Assist Available,Home Health, Outpatient PT Transportation Needs at Discharge Private Vehicle
[2023-09-09] MEDS: OXYCODONE IR 5 MG TABLET PO ×2 (15:40→20:35)
--- NOTE | 2023-09-09 17:08 | OT.IP.EVAL ---
Current Diagnoses Unilateral primary osteoarthritis, left hip (09/09/23) Surgery Performed Operation Date: 09/09/23 07:45 Actual Procedures p Total Hip Arthroplasty/Anterior Approach(Left) - Yasmany Jones MD Past Medical History (Last Updated 08/30/23 @ 12:14 by Bridgett Parada, RN) Breast cancer (~1994) Chronic left hip pain Hearing impaired History of malignant melanoma of skin HTN (hypertension) (~2000) Osteopenia (~2008) Thyroid nodule (~2003) Surgical History (Last Updated 08/30/23 @ 12:10 by Bridgett Parada RN) Anesthesia History of carpal tunnel repair (~2008) History of lumpectomy of left breast (~1994) Hx of bilateral cataract extraction Status post appendectomy (~2003) Status post cholecystectomy (~2003) Status post hysterectomy (~1984) Status post knee surgery (~1992) Occupational Therapy Inpatient Evaluation/Re-Eval M1 PT/OT-IP Prior Functional Status Start: 09/09/23 15:20 Freq: NEEDED Status: Active Protocol: Document 09/09/23 17:13 CGR (Rec: 09/09/23 17:29 CGR [id number]) Medical Review Prior Functional Status Medical History Reviewed Yes Communication Pt is an effective verbal communicator. Mobility and Gait pt stated that she was independent with all mobilities and ambulation without AD but started using a SPC for a few months already: occasionally indoors but all the time for outdoor mobility due to hip pain Activities of Daily Living and IADL's Pt was IND for ADLs. Prior Functional Level (Other details) Pts requires total assist at home. Currently son is assisting. Social History Household Members spouse Living Arrangements House Number of Floors (Floors) One Floor Number of Stairs To Enter/Railing? no steps to enter the house Home Environment Standard Height Toilet,Walk in Shower Home Equipment Front Wheel Walker,Straight Cane,Raised Toilet Seat Without Armrests,Shower Seat with Backrest,Hand Held Shower ,Grab Bars Near Toilet,Grab Bars In Shower Additional Social History Comment pt stated that her spouse will not be able to assist her: her friend Zahida will be staying with her for ~ 1 week to assist her and her son lives ~ 5 min away and can assist if needed pt has a transport w/c and an adjustable bed M2 OT-IP Current Condition Start: 09/09/23 17:13 Freq: Status: Active Protocol: Document 09/09/23 17:13 CGR (Rec: 09/09/23 17:29 CGR [id number]) Occupational Therapy Current Condition Current Condition Evaluation Date 09/09/23 Treatment Diagnosis L MANDO anterior approach Diagnosis Onset Date 09/09/23 Post Operative Precautions Anterior Hip Precautions No Hip Extension,No Hip External Rotation Weight Bearing Status Weight Bearing Status Weight Bear as Tolerated M3 OT- IP Subjective and Pain Start: 09/09/23 17:13 Freq: Status: Active Protocol: Document 09/09/23 17:13 CGR (Rec: 09/09/23 17:29 CGR [id number]) OT- Subjective Occupational Therapy Visit Type Type Initial Evaluation Visit Start Time 16:30 Visit Stop Time 17:08 Occupational Therapy Visit Comments Patient Comments I want to go home tonight. M4 OT- IP ADL's Start: 09/09/23 17:13 Freq: Status: Active Protocol: Document 09/09/23 17:13 CGR (Rec: 09/09/23 17:29 CGR [id number]) OT [id number] Comments OT Self-Feeding Comments not meal time OT ADL-Grooming Comments OT Grooming Comments pt declined OT ADL-Oral Care Comments Oral Care Comments pt declined OT ADL-Dressing General Eval Lower Body Dressing Ability Total Assistance Areas Needing Assistance Socks Comments OT Dressing Comments pt states that she knows how to use a dust brush assembler and sock aid for dressing as her currently uses them to assist with his dressing. OT ADL-Toileting General Evaluation Toileting Ability Minimal Assistance Areas Needing Assistance Manage Clothing,Perform Perineal Hygiene Comments OT Toileting Comments Pt needed min a for pulling pants up after toileting. OT ADL-Bathing Comments OT Bathing Comments not performed M5 OT- IP IADL's Start: 09/09/23 17:13 Freq: Status: Active Protocol: Document 09/09/23 17:13 CGR (Rec: 09/09/23 17:29 CGR [id number]) OT-Instrumental Activities of Daily Living Deficits IADL Deficits Identified No Deficits Home Safety Awareness Awareness of Need for Assistance at Home Good Awareness Ability to Problem Solve Emergency Able to Problem Solve Situations Medication Management Medication Management No Deficits Identified Money Management Money Management No Deficits Identified Meal Preparation Meal Preparation Caregiver Provides Assist Aquaculture Farmer Aquaculture Farmer Caregiver Provides Assist Driving Driving Comments 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 and understands that she can't drive till cleared by MD Anglin OT- IP Functional Cognition Start: 09/09/23 17:13 Freq: Status: Active Protocol: Document 09/09/23 17:13 CGR (Rec: 09/09/23 17:29 CGR [id number]) Cognitive Factors Limiting Selfcare Function Cognitive Ability Level of Alertness Alert Patient Orientation Name,Age,Birthday,Month,Date, Year,Day of Week,Place, Situation Attention Span Ability Capable of Focused Attention, Capable of Sustained Attention Ability to Follow Commands Able to Follow One Step Commands with Increased Time, Able to Follow One Step Commands with Repetition OT- Vision and Hearing OT- Hearing Assessment OT- Hearing Assessment Hearing Impaired,Right Ear Impaired,Use of Hearing Aids OT- Vision Assessment Visual Acuity Glasses All The Time Visual Attentiveness WFL Occular Pursuits WFL Visual Convergence WFL Vision Assessment Comments pt wears bifocals M7 OT- IP Mobility and Balance Start: 09/09/23 17:13 Freq: Status: Active Protocol: Document 09/09/23 17:13 CGR (Rec: 09/09/23 17:29 CGR [id number]) OT- Bed Mobility Assessment Supine to Sit Supine to Sit Assist Standby Assistance,Head of Bed Elevated Sit to Supine Sit to Supine Assist Minimal Assistance,1 Person Assistance,Head of Bed Elevated Scooting Scooting to Edge of Bed Standby Assistance OT-Transfer Assessment Sit to and From Stand Sit to and from Stand Minimal Assistance,Maximum Assistance,Total Assistance,1 Person Assistance Transfers Transfer Ability Minimal Assistance,1 Person Assistance Technique Transfer Destination Bed,Toilet Transfer Technique Stand Step Pivot Devices Transfer Assistive Devices Gait Belt,Front Wheeled Walker Comments Mobility Comments Pt stood from bed with min a. Pt stood from toilet on first attempt with RLE slipping forward, her LLE buckled and pt required total assist to avoid fall to the floor and was returned to sitting on the toilet. Upon second sit to stand pt needed max a with use of the grab bar. Pt then returned to bed at end of session. OT- Balance Assessment Sitting Balance and Reactions Static Sitting Balance Ability Good Dynamic Sitting Balance Ability Good M8 OT- IP Objective Assessments Start: 09/09/23 17:13 Freq: Status: Active Protocol: Document 09/09/23 17:13 CGR (Rec: 09/09/23 17:29 CGR [id number]) OT Gross Range of Motion Upper Extremity Range of Motion Assessment Within Functional Limits OT Strength Upper Extremity Strength Assessment Within Functional Limits Comments Strength Comments 4+/5 OT- Coordination Assessment Upper Extremity Finger to Nose Test Within Functional Limits Finger Tapping Test Within Functional Limits OT-Muscle Tone Assessment Muscle Tone WNL Yes OT Sensation Assessment Edema Edema Absent M9 OT- IP Assessment and Plan Start: 09/09/23 17:13 Freq: Status: Active Protocol: Document 09/09/23 17:13 CGR (Rec: 09/09/23 17:29 CGR [id number]) OT Summary Assessment and Plan Potential Rehabilitation Potential Good Analytic Complexity at Evaluation Moderate Summary OT Impairments Strength,Balance,Functional Mobility,Dressing,Toileting, Bathing,Toilet Transfers, Shower Transfers,Activity Tolerance Progress Towards Goals Progressing Toward Goals Assessment Summary Pt presents as a moderate complexity evaluation s/p admit for L anterior MANDO. Pt's LLE is currently buckling minimally with mobility. Pt required total assist during sit to stand from toilet to prevent fall, see notes above. Pt is eager to discharge home this evening but is agreeable to staying after near fall in the bathroom. Educated pt on the benefit of allowing her block/anesthesia to fully wear off. Pt agreeable to stay the night and is requesting to discharge early in AM. Goals Grooming Goal Independent Dressing Goal Independent Toileting Goal Independent Bathing Goal Independent Toilet Transfer Goal Independent Shower Transfer Goal Independent Days to Meet Goals 3 Frequency of Treatment Frequency Of Treatment Once a Day Treatment Plan OT Treatment Plan ADL Training,Functional Mobility,Patient/Family Education,Discharge Planning Other Treatment Recommendations and Next ADLs standing, toileting Treatment Focus Discharge Recommendations OT Discharge Recommendations Home with Assistance Transportation Needs at Discharge Private Vehicle
--- NOTE | 2023-09-09 19:52 | PM.PN.1 ---
Subjective Subjective Interval history: Patient seen postoperatively. Her pain is well-controlled. She is having issues with weakness in her left thigh. She was able to walk a short distance with physical therapy but had some knee buckling. On my exam she has full intact sensation in her femoral nerve distribution. She is able to volitionally fire her quadriceps muscle and has antigravity strength, as evidenced by the ability to maintain a straight leg raise. I can feel her quadriceps musculature firing in her thigh when she attempts to contract it. On her contralateral side she has 5/5 strength. The operative site is clearly weaker than the other side. There are 3 possibilities here: 1. Lingering effect from her spinal anesthetic. She did not note while she was in the operating room that it was affecting the left side more than the right. 2. Femoral nerve palsy 3. High lumbar radiculopathy due to manipulation during surgery with her preexisting severe lumbar degenerative scoliosis Interestingly she does not report any numbness associated with this weakness. I discussed the expected course and management of a femoral nerve palsy with her and her friend this evening. Were she to have a femoral nerve palsy I would have her wear a knee immobilizer and utilize a walker while we await recovery. Given the fact that she has antigravity function in her quadriceps today, the prognosis for eventual spontaneous recovery would be very good if she does have a femoral nerve palsy. I will re-evaluate in the morning. She will remain inpatient overnight. Otherwise she is doing well, with spontaneous voiding and minimal pain on my exam. Exam Vital Signs (past 8 hours): - 09/09/23 12:00 09/09/23 12:30 09/09/23 13:30 Temperature Pulse Rate 72 90 92 H Respiratory Rate 16 16 16 Blood Pressure 111/66 93/61 106/73 Pulse Oximetry 96 95 93 09/09/23 14:15 09/09/23 17:00 Temperature 97.3 F L Pulse Rate 91 H 89 Respiratory Rate 16 16 Blood Pressure 123/73 127/82 Pulse Oximetry 94 94 Oxygen Delivery Method Room Air Oxygen Flow Rate 0 PFSH Medical History (Updated 08/30/23 @ 12:14 by Bridgett Parada RN) Hearing impaired History of malignant melanoma of skin Thyroid nodule (~2003) Breast cancer (~1994) Chronic left hip pain Osteopenia (~2008) HTN (hypertension) (~2000) Surgical History (Updated 08/30/23 @ 12:10 by Bridgett Parada RN) Hx of bilateral cataract extraction History of lumpectomy of left breast (~1994) Anesthesia History of carpal tunnel repair (~2008) Status post appendectomy (~2003) Status post cholecystectomy (~2003) Status post knee surgery (~1992) Status post hysterectomy (~1984) Family History Father Cancer Mother Hypertension Social History marital status: household members: spouse Smoking Status: Never smoker alcohol intake: never substance use type: does not use Quality VTE Deep Vein Thrombosis/Pulmonary Embolism Present on Admission: No
[2023-09-09] MEDS: ASPIRIN EC 81 MG TABLET PO (20:35)
[2023-09-09] MEDS: LEVOTHYROXINE 75 MCG TABLET PO (20:36)
[2023-09-09] MEDS: DOCUSATE 100 MG CAPSULE PO (20:36)
[2023-09-10] VITALS: BP 143/74; PULSE 83; RESP 18; TEMP 36.5; O2SAT 95
[2023-09-10] MEDS: OXYCODONE IR 5 MG TABLET PO ×2 (00:19→08:50)
[2023-09-10 04:00] VITALS: BP 134/58; PULSE 89; RESP 19; TEMP 36.7; O2SAT 96
[2023-09-10] MEDS: ACETAMINOPHEN 325 MG TABLET 650 MG PO (05:03)
[2023-09-10] MEDS: IBUPROFEN 600 MG TABLET PO (05:03)
[2023-09-10 05:14] LABS: Hematocrit 31.7 % (36-46); Hemoglobin 10.6 g/dL (12.0-16.0)
--- NOTE | 2023-09-10 07:48 | PM.PN.1 ---
Subjective Subjective Interval history: Femoral nerve function is dramatically improved this morning. Patient has 5/5 strength. She never had any diminished sensation in that distribution but last night had 3/5 strength when I rounded on her. Physical therapy noted several episodes of knee buckling during her physical therapy session. At this point with her dramatic improvement in strength, the most likely reasons for her weakness are either a particularly long acting spinal or infiltration of local anesthetic around her nerve. I did use a mixture containing ropivacaine for local pain control during the procedure. I am confident given the rapid recovery of function that this does not represent a femoral nerve palsy or worsening of lumbar motor radiculopathy. She reports that her pain control has improved overnight, although that was not particularly bad yesterday evening to begin with. She has urinated. She was ambulating overnight and nursing staff reports that she was not having issues while doing so. We will plan to discharge her later this morning after working with physical therapy. If physical therapy notes any episodes of knee buckling during the session with her today she should be discharged with a knee immobilizer but this will not be necessary in the intermediate card tender because this appears to have been associated with some sort of local anesthetic, either what was given in her spinal or in her local infiltration. Exam Vital Signs (past 8 hours): - 09/10/23 00:00 09/10/23 04:00 Temperature 97.7 F 98.1 F Pulse Rate 83 89 Respiratory Rate 18 19 Blood Pressure 143/74 H 134/58 L Pulse Oximetry 95 96 Oxygen Delivery Method Room Air Oxygen Flow Rate 0 Objective Labs 09/10/23 04:50 Labs: Laboratory Results - last 24 hr 09/10/23 04:50 Hgb 10.6 L Hct 31.7 L PFSH Medical History (Updated 08/30/23 @ 12:14 by Bridgett Parada RN) Hearing impaired History of malignant melanoma of skin Thyroid nodule (~2003) Breast cancer (~1994) Chronic left hip pain Osteopenia (~2008) HTN (hypertension) (~2000) Surgical History (Updated 08/30/23 @ 12:10 by Bridgett Parada RN) Hx of bilateral cataract extraction History of lumpectomy of left breast (~1994) Anesthesia History of carpal tunnel repair (~2008) Status post appendectomy (~2003) Status post cholecystectomy (~2003) Status post knee surgery (~1992) Status post hysterectomy (~1984) Family History Father Cancer Mother Hypertension Social History marital status: household members: spouse Smoking Status: Never smoker alcohol intake: never substance use type: does not use Quality VTE Deep Vein Thrombosis/Pulmonary Embolism Present on Admission: No
--- NOTE | 2023-09-10 08:40 | PT.IPTN ---
Current Diagnoses Unilateral primary osteoarthritis, left hip (09/09/23) Surgery Performed Operation Date: 09/09/23 07:45 Actual Procedures p Total Hip Arthroplasty/Anterior Approach(Left) - Yasmany Jones MD Physical Therapy Treatment Note M2 PT-IP Current Condition Start: 09/09/23 15:20 Freq: NEEDED Status: Active Protocol: Document 09/09/23 13:40 AB (Rec: 09/09/23 15:41 AB [id number]) Physical Therapy Current Condition Current Condition Evaluation Date 09/09/23 Treatment Diagnosis s/p L MANDO anterior; difficulty in walking Onset Date 09/09/23 M3 PT-IP Subjective Start: 09/09/23 15:20 Freq: NEEDED Status: Active Protocol: Document 09/10/23 09:26 TS (Rec: 09/10/23 09:34 TS [id number]) Subjective Physical Therapy Visit Type Type Treatment Note Visit Start Time 08:40 Visit Stop Time 08:55 Number of DUST SAMPLER Visits 1 Physical Therapy Visit Comments Patient Comments Pt found resting in bed, is agreeable to PT. Therapy Pain Assessment Pain When Pain Assessed At Rest Pain Present Pain Present Pain Reported M4 PT-IP Mobility and Gait Start: 09/09/23 15:20 Freq: NEEDED Status: Active Protocol: Document 09/10/23 09:26 TS (Rec: 09/10/23 09:34 TS [id number]) PT-Bed Mobility Assessment Supine to Sit Supine to Sit Minimal Assistance,1 Person Assistance Sit to Supine Sit to Supine Minimal Assistance,1 Person Assistance Scooting Scooting to Edge of Bed Standby Assistance PT-Transfer Assessment Sit to and From Stand Sit to and from Stand Contact Guard Assistance Equipment Transfer Assistive Device Gait Belt,Front Wheeled Walker Orthotic/Prosthetic Devices or Brace: No Comments Mobility Comments Supine to sit Pilar for uprighting trunk with assist from caregiver. STS from bed CGA, caregiver instructed in and performed donning of gait belt. She ambulated in room ~ 50'SBA with step to gait and use of FWW, pt had no buckling or LOB. Sit to supine into bed Pilar for LE's from caregiver. Pt was left in bed with all needs met. Gait Assessment Gait Gait Assistance Required: Standby Assistance Distance (Feet) 50 Able to Maintain Weight Bearing Status Yes During Gait Assistive Devices Assistive Device Gait Belt,Front Wheeled Walker Orthotic/Prosthetic Devices or Brace: No Gait Deviations General Gait Pattern Decreased Feet Clearance Factors Limiting Gait Function Factors Limiting Gait Function Decreased Activity Tolerance, Decreased Strength,Pain,Poor Balance Comments Gait Comments See mobility comments PT-Balance Assessment Sitting Balance and Reactions Static Sitting Balance Ability Good Dynamic Sitting Balance Ability Good Standing Balance and Reactions Static Standing Balance Ability Good Dynamic Standing Balance Ability Fair Device Used FWW M5 PT-IP Objective Assessments Start: 09/09/23 15:20 Freq: NEEDED Status: Active Protocol: Document 09/09/23 13:40 AB (Rec: 09/09/23 15:41 AB [id number]) Orientation Orientation/Cognition Level of Alertness Alert Orientation Name,Situation Language Function Ability No Deficits Noted Safety Awareness Decreased Safety Awareness Memory Description No Deficits Noted Gross Range of Motion Lower Extremity ROM Assessment Within Functional Limits Strength Lower Extremity Strength Assessment Left Impaired Hip 3-/5 Knee 3+/5 Coordination Assessment Gross Coordination Gross Coordination WNL Sensation Assessment Sensation Gross Sensation WNL Muscle Tone Muscle Tone WNL Yes M6 PT-IP Treatment Start: 09/09/23 15:20 Freq: NEEDED Status: Active Protocol: Document 09/10/23 09:26 TS (Rec: 09/10/23 09:34 TS [id number]) Physical Therapy Treatment Education Education Provided Precautions,Weight Bearing Status,Post-Op Packet,Safety M7 PT-IP Assessment and Plan Start: 09/09/23 15:20 Freq: NEEDED Status: Active Protocol: Document 09/10/23 09:26 TS (Rec: 09/10/23 09:34 TS [id number]) PT Summary Assessment and Plan Potential Rehabilitation Potential Good Summary Impairments Pain,ROM,Strength,Balance, Coordination,Sensation,Tone, Cognition,Bed Mobility, Transfers,Gait,Activity Tolerance Progress Towards Goals Progressing Toward Goals Assessment Summary Barbra is making good progress with her mobility. She is Pilar for bed mobility from caregiver. She is CGA for STS and SBA for gait of ~50' with FWW. She had no buckling of L knee this session and reports feeling more stable. PT is recommending home with assist and outpatient PT. Goals Bed Mobility Goal Independent Transfer Goal Independent,Front Wheeled Walker Gait Goal Independent,Front Wheel Walker Gait Distance 200 Days to Meet Goals 5 Frequency of Treatment Frequency Of Treatment Twice a Day Treatment Plan Physical Therapy Treatment Plan Bed Mobility Training,Transfer Training,Gait Training, Therapeutic Exercise,Balance Retraining,Post Op Education, Discharge Planning,Hot or Cold Pack,Neuromuscular Re-ed, Coordination Retraining,Manual Therapy Precautions Anterior Hip Precautions No Hip Extension,No Hip External Rotation Weight Bearing Status Weight Bearing Status Weight Bear as Tolerated Allowed Weight Bearing Amount (enter % LLE WBAT or #) (%) Recommendations To Nursing Amount of Assist Needed Standby Assistance Discharge Recommendations PT Discharge Recommendations Home with Assistance, Outpatient PT Transportation Needs at Discharge Private Vehicle
[2023-09-10] MEDS: ASPIRIN EC 81 MG TABLET PO (08:50)
[2023-09-10] MEDS: DOCUSATE 100 MG CAPSULE PO (08:50)
[2023-09-10 09:00] VITALS: BP 109/54; PULSE 75; RESP 16; TEMP 36.1; O2SAT 96
--- NOTE | 2023-09-10 09:16 | PM.DS.1 ---
History of Present Illness History of Present Illness Chief complaint: Left Total Hip Arthroplasty/Anterior Approach 09/08 Narrative: Operative Date/Time/Diagnoses Date of procedure: 09/09/23 Pre-op diagnosis: Left hip arthritis Post-op diagnosis: same Procedure & Clinicians Procedure: Left total hip arthroplasty (28092) Same procedure as scheduled: Yes Surgeon: Yasmany Jones Traffic Operations Manager: Ariella Ogden Anesthesia Type: Spinal, Sedation and Local Operative Notes Estimated Blood Loss (mL): 600 Procedure in detail: Implants: Depuy Total Hip Arthroplasty: Depuy Bimentum size 53 cup? Depuy Actis femoral stem size 8 high offset? 28 mm +1.5 ceramic femoral head? 28 mm inner, 53 mm outer dual mobility polyethylene head Discharge Providers Provider Discharge Date: 09/10/23 Primary care physician: Robe Larson MD Consults: 09/09/23 06:00 Consult to Anesthesiology Routine Comment: Consulting Provider: Anesthesiologist Reason for consultation: Regional block for post operative pain control Has provider been notified: No 09/09/23 11:18 Consult to Discharge Planning Routine Comment: Consult to Physical Therapy Evaluate & Treat Comment: Physician Instructions: post op MANDO protocol 09/09/23 15:18 Consult to Occupational Therapy Evaluate & Treat Comment: OT Physician Instructions: Evaluate and treat Discharge provider: Ariella Ogden PA-C Summary Hospital Course Discharge Diagnosis: Left hip osteoarthritis, s/p left total hip arthroplasty Hospital Course: Ms Vargas's hospital course was unremarkable. Please see Dr Jones's progress note from today. She did well w/ PT prior to discharge, no knee buckling, denied need for immobilizer. Exam Vital Signs (past 8 hours): - 09/10/23 04:00 Temperature 98.1 F Pulse Rate 89 Respiratory Rate 19 Blood Pressure 134/58 L Pulse Oximetry 96 Oxygen Delivery Method Room Air Oxygen Flow Rate 0 Objective Labs 09/10/23 04:50 Labs: Laboratory Results - last 24 hr 09/10/23 04:50 Hgb 10.6 L Hct 31.7 L PFSH Medical History (Updated 08/30/23 @ 12:14 by Bridgett Parada RN) Hearing impaired History of malignant melanoma of skin Thyroid nodule (~2003) Breast cancer (~1994) Chronic left hip pain Osteopenia (~2008) HTN (hypertension) (~2000) Surgical History (Updated 08/30/23 @ 12:10 by Bridgett Parada RN) Hx of bilateral cataract extraction History of lumpectomy of left breast (~1994) Anesthesia History of carpal tunnel repair (~2008) Status post appendectomy (~2003) Status post cholecystectomy (~2003) Status post knee surgery (~1992) Status post hysterectomy (~1984) Family History Father Cancer Mother Hypertension Social History marital status: household members: spouse Smoking Status: Never smoker alcohol intake: never substance use type: does not use Discharge Assessment & Plan Assessment and Plan Assessment: Left hip arthritis, s/p left total hip arthroplasty Plan of Treatment: Discharge home, multimodal pain control, ASA for VTE prophylaxis, f/u in office in 2 weeks as scheduled. Discharge Plan Discharge Plan Patient Disposition: Home Provider Discharge Comment: Pt has post-op meds at home. Discharge orders & Medications Discharge Orders: Discharge (Order); Ordered 09/10/23 Ordered By: Ariella Ogden Prescriptions: Continued Disabled Parking Permit See Rx Instructions .ROUTE .COMPLEX Qty: 1 0RF Dose Instruction: I find this patient to be medically disabled and qualified for Disabled Parking as indicated, and signed, on the accompanying Disabled Parking Application for Individuals ; Rx Instructions: I find this patient to be medically disabled and qualified for Disabled Parking as indicated, and signed, on the accompanying Disabled Parking Application for Individuals ; (DME) Lymphedema Sleeve See Rx Instructions .Route .MEDSUPPLY Qty: 1 1RF Rx Instructions: As directed levothyroxine [Synthroid] 75 mcg tablet 75 mcg PO BEDTIME hydrochlorothiazide 25 mg tablet 25 mg PO BEDTIME lisinopril 40 mg tablet 40 mg PO BEDTIME Follow up/Referrals: Robe Larson MD [Primary Care Provider] - Yasmany Jones MD [Physician] - 09/23/23 10:00 am (Follow up w/ Andrew Walker PA-C, at [facility] office in [place]) Diet/Activity/Treatments Diet: Diet as Tolerated Activity: Weightbearing as tolerated to left leg. Anterior hip precautions. Cold/Heat Therapy: Ice to hip as needed for pain. Skin/Wound/Dressing Care Report to your healthcare provider any signs of infection, such as:: chills, fever, night sweats, unusual drainage and unusual redness Dressing: May shower. Leave dressing in place until follow up in office. No bathing or otherwise soaking incision. Call the office if the dressing becomes saturated inside. Visit Report/Discharge Packet Instructions: DI for Hip Replacement, DI for Prescription Opioid Use Stand Alone Forms: Patient Portal/API, Surgery Discharge Discharge Data Primary Care Provider: Robe Larson Attending Provider: Yasmany Jones VTE Deep Vein Thrombosis/Pulmonary Embolism Present on Admission: No
--- NOTE | 2023-09-10 10:14 | PC.NURSE ---
Day shift: Paperwork signed and all questions answered. Pt has all personal belongings. Left unit at approx 1016. Friend is driving her home. Already has MD scripts at home and they are filled. Dressing intact and distal shadow is marked. Cleared by PT and states I'm so happy to be going home today.
--- NOTE | 2023-09-10 12:36 | CM.DANOTE ---
Patient is an 82 yo female who was admitted on 09/09/23 for LTHA. Pt has [employer] for insurance and her PCP is Dr. Robe Larson. EMR was reviewed. Per Ortho PA, pt tolerated procedure well and medically stable to d/c home today with no identified barriers to discharge. Per PT, recommending safe d/c home with spouse assist and outpt PT and pt set up for home. Per RN, pt is agreeable with discharge home this morning and no identified concerns and plan is for spouse to transport this morning. Due to triage needs and no identified needs for discharge, no bedside assessment completed. Pt lives on [address] with spouse and has local supports available. Plan: Patient discharged home this morning via spouse POV and outpt f/u and no further SW needs at this time. TROY Forrest Discharge Planning/Care Management Pre-Anesthesia Assessment Start: 08/30/23 12:03 Freq: Status: Complete Protocol: Document 08/30/23 12:03 [facility] (Rec: 08/30/23 12:27 [facility] [id number]) Pre-Anesthesia Assessment Patient Information Reviewed Via Phone Assessment Assessment Completed With Patient Diagnostic Results BMP/CMP,CBC,EKG Comment Labs/EKG @ [facility] 07/12/23 Primary Care Provider Robe Larson Comment PCP pre-op 07/12/23 in [facility] Medical Clearance Received Yes Seen Specialist in Last 12 Months Yes Specialist Seen Orthopedist,[employer] Primary Language Romanian Contract Manager Required No Height 156.21 cm Weight 72.575 kg Body Mass Index (BMI) 29.7 Hearing Ability Hearing Impaired,Use of Hearing Aid Visual Assist Glasses Dentition Type Teeth, Natural Present Barriers to Learning None Hx Anesthesia Reactions No Hx Family Anesthesia Reaction No Hx Malignant Hyperthermia No Hx Blood Transfusions No Anesthesia Review Requested No 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 No Does patient have DENNY/SOB No Hx Sleep Apnea No Currently Taking a Beta Richard No Hx Chest Pain No Hx SOB No Hx Syncope or Dizziness No Anti-Coagulant Therapy No Has a Instructional Coordinator No Cardiac Testing No Hx Pacemaker/ICD No Pacemaker Rep Required? No Cardiac Clearance Received Not Applicable Diet Type At Home Regular Dysphagia No Gastrointestinal Symptoms None Bladder Pattern Incontinent, Stress Urinary Catheter Present No Hx Urinary Self Catheterization No Diabetes No HgbA1C 5.9 Date 07/12/23 Patient No Lactating No Hx Drug Resistant Organism No Presence of External or Internal Medical Yes: Eleazar eye IOLs Devices Received a COVID vaccine? Yes Received all doses? No Marital Status Lives With spouse Current Living Arrangements House Number of Floors (Floors) One Floor Comment has physical limitations, son and GF(nurse) will assist with care Does the Patient Have Assistance After Yes Surgery Patient Discharge Plan Description Return Home Comment Pt advised same day surgery per surgeon Feels Safe in Current Environment Yes Been Physically Hurt or Threatened By a No Person in Current Environment Do you have thoughts of harming yourself None or others? Are you currently considering suicide? No Do you have a plan to hurt yourself or No Plan others? Do You Have Any Spiritual Beliefs That No May Affect Your HC Choices? Do You Have Any Cultural Practices That No May Affect Your HC Choices? Comment Frank Who Can We Speak to About Patient's Care Family, friends Identifying Code for Release of Patient Declines to issue Information Health Care Proxy/Next of Kin Mitchel () Home (son) Health Care Proxy Phone Number Mitchel: [phone] [place]: [phone] Emergency Contact Name Mitchel () Home (son) Emergency Contact Phone Number Mitchel: [phone] [place]: [phone] Advance Directives? Yes Advance Directives on File No Requested Patient Bring Advanced Yes Directives DOS Power of Eating Disorder Specialist Yes Power of Eating Disorder Specialist Name Mitchel () Home (son) Power of Eating Disorder Specialist Phone Number Mitchel: [phone] [place]: [phone] PAC Instructions Assistance for 24 hours post- op,Do not shave/clip surgical site,Durable medical equipment ,Medications to take/avoid, Nasal antibiotic,No ETOH/ petroleum product on skin DOS, NPO,Post-op transportation,Pre -surgical wash,Sensory aids, Sturdy shoes/comfortable clothes,Do not bring valuables and remove jewelry
== END 2023-09-10 10:17 | disposition home or self-care (01) ==
LOC: OR 05:58 → AC 05:59
PROVIDERS: PCP Family Medicine; Referring Provider Orthopaedic Surgery Adult Reconstructive Orthopaedic Surgery; Visit Provider Orthopaedic Surgery Adult Reconstructive Orthopaedic Surgery
PROC: (CPT 27130; principal; 2023-09-09 07:45)
DX: M16.12 Unilateral primary osteoarthritis, left hip (principal)
CPT/HCPCS: 27130; 36415; 73502; 76000; 85014; 85018; 97162; 97166; 97530; 97535; C1776; J0690; J1100; J2405; J2704

== ENCOUNTER → 2023-10-24 08:51 | Outpatient (CLI) | payer MEDICARE, OTHER, SELFPAY ==
[2023-09-09 12:55] VITALS: BMI 30.2
[2023-10-24 09:46] LABS: Appearance Urine UA CLEAR; Bilirubin Urine UA NEGATIVE (NEGATIVE); Color Urine UA YELLOW; Glucose Urine UA NEGATIVE (Negative); Ketones Urine UA NEGATIVE (NEGATIVE); Leukocyte Esterase Urine UA TRACE (NEGATIVE); Nitrite Urine UA NEGATIVE (Negative); Occult Blood Urine UA NEGATIVE (Negative); Protein Urine UA NEGATIVE (Negative); Urobilinogen Urine UA 0.2 E.U./dL (0.2)
[2023-10-24 09:47] LABS: Urine Volume 10mL (spun)
[2023-10-24 09:56] LABS: Bacteria Urine None Seen; Culture Indicated Urine Cult Not Indicated; RBC Urine None Seen (0-5/HPF); Squamous Epithelial Cell Urine None Seen (0-5/HPF); WBC Urine None Seen (0-5/HPF)
== END ==
PROVIDERS: PCP Family Medicine; Referring Provider Physician Assistant; Visit Provider Physician Assistant
DX: N39.0 Urinary tract infection, site not specified (principal)
CPT/HCPCS: 81001

== ENCOUNTER → 2024-04-26 11:31 | Outpatient (CLI) | payer MEDICARE, OTHER, SELFPAY ==
[2023-09-09 12:55] VITALS: BMI 30.2
[2024-04-26 12:18] LABS: Alanine Aminotransferase 20 IU/L (<35); Albumin 4.5 g/dL (3.5-5.0); Albumin Globulin Ratio 1.5 (1.0-2.8); Alkaline Phosphatase 89 U/L (38-126); Aspartate Aminotransferase 28 IU/L (14-36); BUN Creatinine Ratio 28.2 (6-22); Bilirubin Total 0.6 mg/dL (0.2-1.3); Blood Urea Nitrogen 20 mg/dL (7-17); Calcium 9.6 mg/dL (8.4-10.2); Carbon Dioxide 27 mmol/L (22-32); Chloride 103 mmol/L (98-107); Cholesterol 258 mg/dL (140-199); Estimated Glomerular Filt Rate > 60 mL/min (>60); Glucose 97 mg/dL (80-110); HDL Cholesterol 69 mg/dL (40-60); HEMOLYSIS < 15 (0-50); LDL Cholesterol Calculated 167 mg/dL (<100); Potassium 3.9 mmol/L (3.4-5.1); Sodium 138 mmol/L (137-145); Total Protein 7.5 g/dL (6.3-8.2); Triglycerides 112 mg/dL (35-150)
[2024-04-26 12:45] LABS: TSH w/ Reflex to FT4 0.29 uIU/mL (0.47-4.68)
[2024-04-26 13:02] LABS: Add Manual Diff / Slide Review NO; Basophils Absolute Auto 0 /uL (0-100); Basophils Percent Auto 0.7 % (0-2); Eosinophils Absolute Auto 100 /uL (0-450); Hematocrit 43.8 % (36-46); Hemoglobin 14.5 g/dL (12.0-16.0); Lymphocytes Absolute Auto 1800 /uL (1100-4500); Lymphocytes Percent Auto 24.7 % (25-40); Mean Corpuscular HGB Conc 33.1 % (30-36); Mean Corpuscular Hemoglobin 29.5 PG (26-34); Mean Corpuscular Volume 89.1 fL (80-100); Monocytes Absolute Auto 500 /uL (0-900); Monocytes Percent Auto 6.7 % (3-14); Neutrophils Absolute Auto 4900 /uL (1500-7000); Neutrophils Percent Auto 66.9 % (50-75); Platelet Count 303 X10^3/uL (150-400); Red Blood Cell Count 4.92 X10^6/uL (4.0-5.2); Red Cell Distribution Width 14.7 % (11.6-14.8); White Blood Cell Count 7.4 X10^3/uL (4.5-11.0)
[2024-04-26 13:27] LABS: Free T4, Direct Thyroxine 1.37 ng/dL (0.78-2.19)
== END ==
PROVIDERS: PCP Family Medicine; Referring Provider Family Medicine; Visit Provider Family Medicine
DX: E03.9 Hypothyroidism, unspecified (principal); I10 Essential (primary) hypertension; Z13.220 Encounter for screening for lipoid disorders
CPT/HCPCS: 36415; 80053; 80061; 84439; 84443; 85025

== ENCOUNTER → 2024-04-30 11:19 | Outpatient (CLI) | payer MEDICARE, OTHER, SELFPAY ==
[2023-09-09 12:55] VITALS: BMI 30.2
--- NOTE | 2024-04-30 11:20 | DI.RAD.S_ITS ---
PROCEDURE: XR LUMBAR SPINE 2-3V INDICATIONS: LOW BACK PAIN TECHNIQUE: 3 views of the lumbar spine were acquired. COMPARISON: [facility], CR, XR LUMBAR SPINE 2 OR 3 VIEWS, 07/04/2023, 10:08. [facility], CR, XR LUMBAR SPINE 2-3V, 02/09/2019, 8:27. [facility], CR, L-SPINE 2-3 VIEWS, 10/07/2017, 9:07. FINDINGS: Bones: Leftward spinal curvature in the lower lumbar spine. Partially seen left hip arthroplasty. Trace anterolisthesis of L4 on L5. Moderate to severe spondylosis, with facet arthropathy, disc space height loss, and osteophytes. Vertebral body heights are well maintained. Soft tissues: Cholecystectomy clips. Small linear densities project over the right hemipelvis. Increased fecal loading. Vascular calcifications. IMPRESSION: Moderate to severe spondylosis again seen along with anterolisthesis of L4 on L5 probably degenerative. If there is high concern for further derangement, consider MRI evaluation. Dictated by: Surjit Jiang M.D. on 04/30/2024 at 14:02 Approved by: Surjit Jiang M.D. on 04/30/2024 at 14:04
== END ==
PROVIDERS: PCP Family Medicine; Referring Provider Family Medicine; Visit Provider Family Medicine
DX: M47.816 Spondylosis without myelopathy or radiculopathy, lumbar region (principal); M43.16 Spondylolisthesis, lumbar region; M54.50 Low back pain, unspecified
CPT/HCPCS: 72100

== ENCOUNTER → 2024-05-04 | Outpatient (CLI) | payer MEDICARE, OTHER, SELFPAY ==
[2023-09-09 12:55] VITALS: BMI 30.2
--- NOTE | 2024-05-04 11:53 | DI.MRI.S_ITS ---
BREAST MRI OF BOTH BREASTS: 05/04/2024 CLINICAL: History of Left Breast Cancer. Comparison is made to exams dated: 03/31/2022 mammogram, 04/01/2023 mammogram, 03/25/2021 mammogram, 03/24/2020 mammogram, 03/23/2019 mammogram, and 09/28/2021 mammogram - [facility]. INDICATIONS: F/U L breast cancer TECHNIQUE: The patient was placed prone in a dedicated breast imaging coil. Precontrast axial STIR and 3D FLASH without fat saturation sequences were obtained. Both before and after bolus injection of contrast, sequential 1-minute axial 3D FLASH with fat saturation sequences for 3 time points, with subtraction images and maximum intensity projections (MIP's) generated. Delayed sagittal FLASH images with fat saturation were also obtained. Computer-aided detection, including computer algorithm analysis of MRI image data for lesion detection and characterization, pharmacokinetic analysis, with further physician review for interpretation, was performed. FINDINGS: Image quality: Excellent. There is mild background parenchymal enhancement. There are scattered fibroglandular elements in both breasts. Right breast: No suspicious mass or abnormal non-mass enhancement in the breast. Multiple level 1 axillary lymph nodes are borderline in size, measuring 8-9 mm in short axis diameter. No internal mammary lymphadenopathy. Left breast: Postsurgical changes are seen in the left breast and left axilla. There is associated trabecular thickening. No suspicious mass or abnormal non-mass enhancement is seen in the left breast. A single level 2 axillary lymph node measures up to 9 mm in short axis diameter. No internal mammary lymphadenopathy. Miscellaneous: Heart is mildly enlarged. Included portions of the anterior chest wall and upper abdomen otherwise demonstrate no significant abnormality. IMPRESSION: INCOMPLETE: NEED ADDITIONAL IMAGING EVALUATION 1. Borderline-sized left level 2 and right level 1 axillary lymph node measuring 8-9 mm in short axis diameter. Recommend correlation for recent systemic illness or vaccine administration. Follow-up bilateral axillary ultrasound is recommended, which can be delayed 6-12 weeks to allow for resolution of possible reactive lymphadenopathy. 2. Postsurgical changes in the left breast. No MR evidence of recurrent malignancy in the breast. BIRADS 0: Needs additional imaging. Recommend bilateral axillary ultrasounds, which may be delayed 6-12 weeks to allow for resolution of possible reactive lymphadenopathy. This exam was interpreted at Station ID: [id number]. Electronically Signed By: Son infante/:05/06/2024 15:05:49 letter sent: Additional Imaging Needed ACR BI-RADS Category 0: Incomplete: Need Additional Imaging Evaluation
== END ==
LOC: MRI 11:52
PROVIDERS: PCP Family Medicine; Referring Provider Family Medicine; Visit Provider Family Medicine
DX: C50.912 Malignant neoplasm of unspecified site of left female breast (principal)
CPT/HCPCS: 77049; A9579

== ENCOUNTER → 2024-06-15 12:04 | Outpatient (CLI) | payer MEDICARE, OTHER, SELFPAY ==
[2023-09-09 12:55] VITALS: BMI 30.2
--- NOTE | 2024-06-15 12:07 | DI.US.S_ITS ---
ULTRASOUND OF RIGHT AXILLA: 06/15/2024 CLINICAL: Follow up lymphadenopathy from breast MRI. Comparison is made to exams dated: 05/04/2024 breast MRI, 04/01/2023 mammogram, 03/31/2022 mammogram, and 09/28/2021 mammogram - [facility]. Color flow and real-time ultrasound of the right axilla were performed. Dominguez scale images of the real-time examination were reviewed. A few small right axillary lymph nodes. No enlarged nodes or cortical thickening. Preserved fatty hilums. IMPRESSION: BENIGN There is no sonographic evidence of malignancy. No suspicious right axillary lymph nodes. A 1 year screening mammogram is recommended. Exam findings were conveyed to the patient. This exam was interpreted at Station ID: [id number]. Electronically Signed By: Vasile Grimes M.D. [facility]/:06/15/2024 13:17:50 letter sent: Normal Exam ACR BI-RADS Category 2: Benign
--- NOTE | 2024-06-15 12:07 | DI.US.S_ITS ---
ULTRASOUND OF LEFT AXILLA: 06/15/2024 CLINICAL: Follow up lympadenopathy seen on breast MRI. Comparison is made to exams dated: 05/04/2024 breast MRI, 04/01/2023 mammogram, 03/31/2022 mammogram, 03/25/2021 mammogram, 03/24/2020 mammogram, and 03/23/2019 mammogram - [facility]. Color flow and real-time ultrasound of the left axilla were performed. Dominguez scale images of the real-time examination were reviewed. There is a 0.7 cm normal lymph node in the left axilla.This normal lymph node is hypoechoic. This abnormality is decreased in size and correlates with breast MRI findings. Color flow imaging demonstrates that there is no vascularity present. No additional left axillary nodes seen. IMPRESSION: BENIGN There is no sonographic evidence of malignancy. Left subpectoral lymph node measuring 0.7 cm is slightly decreased in size. A 1 year screening mammogram is recommended. Exam findings were conveyed to the patient. Patient is advised to monitor for significant change. Clinical follow-up as needed. This exam was interpreted at Station ID: [id number]. Electronically Signed By: Vasile Grimes M.D. [facility]/:06/15/2024 13:18:16 letter sent: Normal Exam ACR BI-RADS Category 2: Benign
== END ==
LOC: US 12:06
PROVIDERS: PCP Family Medicine; Referring Provider Family Medicine; Visit Provider Family Medicine
DX: R59.1 Generalized enlarged lymph nodes (principal)
CPT/HCPCS: 76882

== ENCOUNTER → 2024-09-06 12:21 | Outpatient (CLI) | payer MEDICARE, OTHER, SELFPAY ==
[2023-09-09 12:55] VITALS: BMI 30.2
[2024-09-06 13:21] LABS: Appearance Urine UA CLEAR; Bilirubin Urine UA NEGATIVE (NEGATIVE); Color Urine UA YELLOW; Glucose Urine UA NEGATIVE (Negative); Ketones Urine UA NEGATIVE (NEGATIVE); Leukocyte Esterase Urine UA 3+ (NEGATIVE); Nitrite Urine UA NEGATIVE (Negative); Occult Blood Urine UA NEGATIVE (Negative); Protein Urine UA NEGATIVE (Negative); Specific Gravity Urine UA 1.015 (1.000-1.035); Urobilinogen Urine UA 0.2 E.U./dL (0.2)
[2024-09-06 13:49] LABS: RBC Urine None Seen (0-5/HPF); Urine Volume 10mL (spun)
[2024-09-06 13:50] LABS: Bacteria Urine Moderate (10-30); Culture Indicated Urine Specimen Cultured; Squamous Epithelial Cell Urine 0-1 /HPF (0-5/HPF); WBC Urine 1-5/HPF (0-5/HPF)
== END ==
PROVIDERS: PCP Family Medicine; Visit Provider Physician Assistant
DX: R30.0 Dysuria (principal)
CPT/HCPCS: 81001; 87077; 87086; 87186

== ENCOUNTER → 2024-10-10 08:36 | Outpatient (CLI) | payer MEDICARE, OTHER, SELFPAY ==
[2023-09-09 12:55] VITALS: BMI 30.2
--- NOTE | 2024-10-10 08:37 | DI.US.S_ITS ---
PROCEDURE: US PELVIC COMPLETE INDICATIONS: RT PELVIC PAIN TECHNIQUE: Real-time scanning was performed of the pelvic organs, with image documentation. Additional endovaginal scanning was necessary due to incomplete visualization of the adnexal and endometrial structures by transabdominal scanning. COMPARISON: None. FINDINGS: Uterus: Surgically absent. Ovaries: Right ovary is surgically absent. Left ovary is not seen. Other: No pathologic free abdominal or pelvic fluid. Appendix is not seen. IMPRESSION: Left ovary is not seen. Uterus and right ovary are surgically absent. We strive to produce accurate, complete, and clear reports of imaging services. To assist us in improving patient care, this report was composed using standard report templates and voice recognition software. Therefore, it may contain abnormal punctuation, insertions and/or omissions. Occasional wrong-word or sound-alike substitutions may occur. Though we review the report and make efforts to correct it, we do recommend that the report be read carefully in proper context to recognize any text inaccuracies. Dictated by: Mio Whitman M.D. on 10/10/2024 at 10:05 Approved by: Mio Whitman M.D. on 10/10/2024 at 10:06
== END ==
PROVIDERS: PCP Family Medicine; Referring Provider Physician Assistant; Visit Provider Physician Assistant
DX: R10.31 Right lower quadrant pain (principal); Z90.710 Acquired absence of both cervix and uterus; Z90.721 Acquired absence of ovaries, unilateral
CPT/HCPCS: 76830; 76856

== ENCOUNTER → 2024-10-18 14:39 | Outpatient (CLI) | payer MEDICARE, OTHER, SELFPAY ==
[2023-09-09 12:55] VITALS: BMI 30.2
--- NOTE | 2024-10-18 14:44 | DI.RAD.S_ITS ---
PROCEDURE: XR KUB INDICATIONS: RLQ pain - possible kidney stone TECHNIQUE: One view of the abdomen acquired. COMPARISON: [facility], CR, XR HIP W PEL IF DONE SHIVAM 3TO4V, 11/05/2021, 7:47. [facility], CR, XR T AND L SPINE 4 TO 5 VIEWS, 04/01/2023, 8:54. [facility], CR, XR HIP W PEL IF DONE LT 2V, 09/09/2023, 9:31. [facility], CR, XR HIP W PEL IF DONE LT 2V, 09/09/2023, 10:32. FINDINGS AND IMPRESSION: No definite calcified stones seen radiographically projecting over the renal shadows. A right pelvic possible clip is present. Projecting over the right sacrum, there are small densities, indeterminate for bowel contents versus ureter stones versus phleboliths. Consider CT KUB if there is further clinical concern. Moderate fecal loading. Degenerative osseous changes and lumbar spinal curvature. Left hip arthroplasty. Dictated by: Surjit Jiang M.D. on 10/18/2024 at 16:06 Approved by: Surjit Jiang M.D. on 10/18/2024 at 16:08
== END ==
PROVIDERS: PCP Family Medicine; Referring Provider Physician Assistant; Visit Provider Physician Assistant
DX: R10.31 Right lower quadrant pain (principal); Z96.642 Presence of left artificial hip joint
CPT/HCPCS: 74018

== ENCOUNTER → 2024-10-25 10:29 | Outpatient (CLI) | payer MEDICARE, OTHER, SELFPAY ==
[2023-09-09 12:55] VITALS: BMI 30.2
--- NOTE | 2024-10-25 10:34 | DI.RAD.S_ITS ---
PROCEDURE: XR LUMBAR SPINE 2-3V INDICATIONS: evaluate lower back TECHNIQUE: 3 views of the lumbar spine were acquired. COMPARISON: [facility], [place], XR LUMBAR SPINE 2-3V, 04/30/2024, 11:18. [facility], [place], L-SPINE 2-3 VIEWS, 10/07/2017, 9:07. FINDINGS: Bones: 5 [id number] vertebrae are present. There is moderate dextroscoliotic bony alignment centered at L2-L3, previously present. No vertebral body compression fractures. No suspicious bony lesions. The degenerative disc disease and facet osteoarthritis is moderately severe from L 2 through S1, most pronounced from L 3 through S1. Significant spinal and foraminal stenosis over the lower half of the lumbosacral spine is likely present especially when combined with compensatory levoscoliosis centered at L4. Soft tissues: Overlying bowel gas pattern is normal. No suspicious soft tissue calcifications. IMPRESSION: Chronic degenerative changes and scoliotic alignment that is dextroscoliotic at the mid LS spine and levo scoliotic at the lower LS spine. Significant spinal and foraminal stenosis and degenerative changes would be expected and no definite new change is found. Dictated by: Dimitri Warner M.D. on 10/25/2024 at 12:29 Approved by: Dimitri Warner M.D. on 10/25/2024 at 12:31
== END ==
PROVIDERS: PCP Family Medicine; Referring Provider Family Medicine; Visit Provider Family Medicine
DX: M51.379 Other intervertebral disc degeneration, lumbosacral region without mention of lumbar back pain or lower extremity pain (principal); M51.369 Other intervertebral disc degeneration, lumbar region without mention of lumbar back pain or lower extremity pain; M48.061 Spinal stenosis, lumbar region without neurogenic claudication; M48.07 Spinal stenosis, lumbosacral region; M47.816 Spondylosis without myelopathy or radiculopathy, lumbar region; M47.817 Spondylosis without myelopathy or radiculopathy, lumbosacral region; M41.9 Scoliosis, unspecified; M54.50 Low back pain, unspecified; G89.29 Other chronic pain
CPT/HCPCS: 72100

== ENCOUNTER → 2024-12-04 13:16 | Outpatient (ROUT) | payer MEDICARE, OTHER, SELFPAY ==
[2023-09-09 12:55] VITALS: BMI 30.2
== END ==
PROVIDERS: PCP Family Medicine; Visit Provider Dermatology
DX: L30.9 Dermatitis, unspecified (principal)
CPT/HCPCS: 87070; 87077; 87147; 87205

== ENCOUNTER → 2024-12-24 12:35 | Outpatient (CLI) | payer MEDICARE, OTHER, SELFPAY ==
[2023-09-09 12:55] VITALS: BMI 30.2
[2024-12-31 14:39] LABS: Calprotectin, Stool < 5 ug/g (0-120)
== END ==
PROVIDERS: PCP Family Medicine; Referring Provider Physician Assistant; Visit Provider Physician Assistant
DX: R19.5 Other fecal abnormalities (principal)
CPT/HCPCS: 83993; 87045

== ENCOUNTER → 2024-12-31 13:18 | Outpatient (CLI) | payer MEDICARE, OTHER, SELFPAY ==
[2023-09-09 12:55] VITALS: BMI 30.2
== END ==
LOC: WC 13:28
PROVIDERS: Family Provider Family Medicine; PCP Family Medicine; Referring Provider Family Medicine; Visit Provider Surgery
DX: Z87.2 Personal history of diseases of the skin and subcutaneous tissue (principal); R21 Rash and other nonspecific skin eruption; I10 Essential (primary) hypertension; Z85.3 Personal history of malignant neoplasm of breast; Z85.820 Personal history of malignant melanoma of skin
CPT/HCPCS: 99203; 99212

== ENCOUNTER → 2025-05-03 07:49 | Outpatient (CLI) | payer MEDICARE, OTHER, SELFPAY ==
[2023-09-09 12:55] VITALS: BMI 30.2
[2025-05-03 08:41] LABS: Add Manual Diff / Slide Review NO; Hematocrit 44.6 % (36-46); Hemoglobin 15.2 g/dL (12.0-16.0); Lymphocytes Absolute Auto 1900 /uL (1100-4500); Mean Corpuscular HGB Conc 34.1 % (30-36); Mean Corpuscular Hemoglobin 30.2 PG (26-34); Mean Corpuscular Volume 88.7 fL (80-100); Platelet Count 312 X10^3/uL (150-400)
[2025-05-03 09:03] LABS: Alanine Aminotransferase 22 IU/L (<35); Albumin 4.8 g/dL (3.5-5.0); Albumin Globulin Ratio 1.6 (1.0-2.8); Alkaline Phosphatase 74 U/L (38-126); Blood Urea Nitrogen 21 mg/dL (7-17); Calcium 9.6 mg/dL (8.4-10.2); Carbon Dioxide 25 mmol/L (22-32); Chloride 100 mmol/L (98-107); Cholesterol 218 mg/dL (140-199); Estimated Glomerular Filt Rate > 60 mL/min (>60); Globulin 3.0 g/dL (1.7-4.1); Glucose 100 mg/dL (70-99); HDL Cholesterol 77 mg/dL (40-60); HEMOLYSIS 25 (0-50); Potassium 4.1 mmol/L (3.4-5.1); Sodium 136 mmol/L (137-145); Total Protein 7.8 g/dL (6.3-8.2); Triglycerides 103 mg/dL (35-150)
[2025-05-03 09:26] LABS: Thyroid Stimulating Hormone 0.663 uIU/mL (0.47-4.68)
== END ==
PROVIDERS: PCP Family Medicine; Referring Provider Family Medicine; Visit Provider Family Medicine
DX: E03.9 Hypothyroidism, unspecified (principal); I10 Essential (primary) hypertension
CPT/HCPCS: 36415; 80053; 80061; 84443; 85025